=== PATIENT | female | born 1950 | race Caucasian/White ===

== ENCOUNTER 2018-03-25 09:30 | Outpatient (RCR) | payer OTHER, SELFPAY ==
--- NOTE | 2018-03-12 10:18 | PCM.PR.DAT ---
Dates of Coverage Times for Dates Of Coverage; All dates of coverage are for physician supervision/caregivers non medical for during the times of 08:00 AM through 4:30 PM. Effective Jul 27, 2013 our hours will be changing to 8:00 to 4:30 on Sunday, Sunday and Sunday. First Date of the Month: 03/12/18 Last Date of the Month: 03/25/18
--- NOTE | 2018-03-12 10:18 | PCM.PR.HP ---
History of Present Illness Arrival date:: 03/12/18 Arrival time:: 10:19 Date of Referral:: 02/26/18 Date of Evaluation: 03/12/18 Referring Physician: DR. STEPHANIE DAVID Primary Diagnosis: COPD SEVERE GOLD CLASSIFICATION III History of Present Illness: PATIENT IS A 67 YEAR OLD FEMALE PATIENT WHO IS RETURNING TO CONTINUE HER PULMONARY REHAB PROGRAM. SHE INITIALLY HAD STARTED BUT HAD TO POSTPONE PARTICIPATION DUE TO OTHER MEDICAL ISSUES. [facility] Breathless Scale: When is the patient short of breath? Y/N Grade: Description of Breathlessness: 0 I only get breathless with strenuous exercise. 1 I get short of breath when hurrying on level ground or walking up a slight hill. 2 On level ground, I walk slower than people of the same age because of breathless, or have to stop for breath when walking at my own pace. 3 I stop for breath after walking 100 yards or after a few minutes on level ground. 4 I am too breathless to leave the house or I am breathless when dressing. Respiratory Problems: Yes: Fatigue, Able to Speak in Full Sentences, Anxiety, Panic, Dyspnea with Activity No: Retain Secretions, Limited Range of Motion, Chest Pain, Wheezing, Dizziness, Dyspnea at Rest, Dyspnea Lying Down Flat, Cough with Secretions Home Medications: Home Medications Aspirin [Aspirin, Baby] 81 mg PO DAILY@0800 03/25/16 Nebulizer & Supplies #1 ea 11/15/17 budesonide-formoterol HFA 160 mcg-4.5 mcg/actuation aerosol inhaler 2 puff INHALATION BID #10.2 g 12/20/17 bupropion HCl XL 300 mg 24 hr tablet, extended release 300 mg PO QAM 02/04/18 diltiazem CD 120 mg capsule,extended release 24 hr 120 mg PO BID cap 02/04/18 fluticasone 50 mcg/actuation nasal spray,suspension 50 mcg INTRANASAL QDAY 02/04/18 ipratropium bromide 0.02 % solution for inhalation 0.5 mg INHALATION 4X/DAY #120 vial 02/04/18 loratadine 10 mg tablet 10 mg PO QDAY 02/04/18 magnesium oxide 400 mg tablet 400 mg PO QDAY tab 02/04/18 albuterol sulfate HFA 90 mcg/actuation aerosol inhaler 2 puff INHALATION Q4H PRN PRN #18 g 02/25/18 Allergies/Adverse Reactions: Allergies Sulfa (Sulfonamide Antibiotics) Allergy (Verified 02/04/18 09:12) Rash - Secretions Thick:: No Thin:: No Hx of Sleep Apnea: Yes Do you snore loudly (louder than talking or can be heard through closed doors)?: Yes - Has previous MH of PAUL and uses BiPaP at [facility] with oxygen. Do you often feel tired/ fatigued/ sleepy during daytime?: Yes Has anyone observed you stop breathing during sleep?: Yes History of Hypertension (for STOP score): Yes STOP Results: Positive Medical Utilization Do you use a peak flow meter at home?: No Do you use a spacer device with your inhalers?: No Number of hospital visits in the last year?: - February 2017 exacerbation Number of emergency room visits in the last year?: 2 - bronchitis and vertigo Do you see your physician on a regular schedule?: Yes How often?: 6 months and as needed Advanced Directives - Advanced Directives Power of Portable Irrigation Operator: Yes Living Will: Yes Advance Directives Information Provided: No Advance Directives on File: No - Patient is unsure if they are on her medical record DNR Order?:: No - MOLST See MOLST form: No Past Medical History Medical History: Past Medical History (Last Updated 03/12/18 @ 10:24 by Yonas Holloway, SPECIAL PROJECTS MANAGER, BASKETBALL COMMENTATOR, BS) Cough (Chronic) R05 Pneumonia (Chronic) J18.9 Pulmonary hypertension (Chronic) I27.20 Hypersomnia (Chronic) G47.10 Hyperlipidemia (Chronic) E78.5 PAUL (obstructive sleep apnea) (Chronic) G47.33 BiPAP 18/10 cm of water with 2 L oxygen bleed Stage 3 severe COPD by GOLD classification (Chronic) J44.9 FEV1 43% COPD with acute exacerbation (Acute) J44.1 Bronchiectasis (Chronic) J47.9 SOB (shortness of breath) (Chronic) R06.02 Tachycardia (Chronic) R00.0 HTN (hypertension) (Chronic) I10 COPD (chronic obstructive pulmonary disease) (Chronic) J44.9 Vertigo R42 Family History: Family History (Last Reviewed 02/04/18 @ 09:23 by Maci Geller NP-C) Mother Lung cancer Father Liver cancer Sister Colon cancer Sister Breast cancer - Current/ Previous Services Pulmonary Rehab:: Yes - Comments Comments: Patient started [place] back in like 2014/2015 and had to quit participation due to other health issues. Social History - Smoking History Smoking Status: Former smoker Years Smokin Packs Smoked per Day: 1 Hx Smoking Cessation Date: February Hx Tobacco Use: Yes Hx Smoking Exposure: No - Alcohol Use Alcohol Usage: Yes - wine nightly; 2-3 glasses - Substance Abuse Hx Substance Use: No - Occupation Occupation (List type of work in comments):: Retired - Hobbies, Recreation, Social Activities Hobbies: Reading, Other - golfing, spending time wiht grandchildren Recreational Activities: I am able to engage in most, but not all activities Functioning ADL/IADL - Current Ability Current Ability: Independent Self-Care (e.g.,grooming, dressing, & bathing), Independent Ambulation, Independent Transfer, Independent Household tasks (e.g., light meal prep, laundry, shopping) - Pt Functioning Prior to Problem Prior Functioning: Self-Care (e.g.,grooming, dressing, & bathing): Independent, Ambulation: Independent, Transfer: Independent, Household tasks (e.g., light meal prep, laundry, shopping): Independent Social Environment - Status Marital Status: - Current Living Arrangements Living Environment:: Spouse - Children How many children do you have?: 3 Do any of your children live nearby?: Yes - 2 live nearby - Safety Do you feel safe in your surroundings?: Yes - Assistance Do you need any assistance at home?: none Review of Systems Review of Systems: Right click = Denies ([place]). Left click = Reports ([place]) Respiratory: Reports: Appetite, Normal, Dizziness/Lightheadedness - recent onset of vertigo, Fatigue, Sleep, Normal. Denies: Cough, SOB at Rest, Sputum production Is Patient Pain Free?: No Pain Location: none Risk Factor Assessment - Chief Complaint Chief Complaint: Patient has history of COPD, and PAUL. - Vital Signs Temperature: 98.7 F Pulse Rate: 88 Pulse Rhythm: Regular Respiratory Rate: 18 Pulse Ox: 92 Blood Pressure: 152/84 Nailbeds:: unable to determine nails - Smoking Do you use tobacco products? If so, how much and for how long?: Yes If no, have you EVER used tobacco products?: Quit greater than 12 months ago Exposure to 2nd-hand smoke? How much and how long?: No Do you plan to quit smoking?: Yes - Obesity Height: 5 ft 4 in Weight:: 175 lb Weight in Pounds: 175.0 lbs Weight Source: Stated by Patient Body Mass Index (BMI): 30.0 Nutritional Referral for Obesity: Yes - Patient could benefit from structured weight loss program. - Physical Activity Physical Inactivity: None - Risk Stratification Risk Guidelines: Lowest Risk: Risk Factor for Smoking, Risk Factor for Dyslipidemia, Risk Factor for Diabetes, Risk Factor for Hypertension, Risk Factor for Depression, Moderate Risk: Risk Factor for Sedentary Lifestyle, Highest Risk: Risk Factor for Obesity - For Smoking Smoking Risk Guidelines: Smoking Low Risk: None or quit greater than 6 months ago. Smoking Moderate Risk: Smoker or quit 6 months or less ago. Smoking High Risk: Smoker - For Dyslipidemia Dyslipidemia Risk Guidelines: Low Risk: Moderate Risk: High Risk: 15-25% fat 25.1-29% fat >/= 30% fat. <7% sat fat 7-9% sat fat >9% sat fat. <150 mg chol 150-299 mg chol >/= 300 mg chol. LDL <100 LDL 100-129 LDL >/= 130. Chol/HDL ratio <5.0 Chol/HDL ratio 5.0-6.0 Chol/HDL ratio >6.0. Triglycerides <100 Triglycerides 100-149 Triglycerides >/= 150 - For Diabetes Mellitus Diabetes Risk Guidelines: Diabetes Low Risk: HgA1c <6.5% and/or FBG <120. Diabetes Moderate Risk: HgA1c 6.6-7.9% and/or FBG 120-180. Diabetes High Risk: HgA1c >/= 8% and/or FBG >180 - For Obesity/Overweight Obesity/Overweight Risk Guidelines: Obesity Low Risk: BMI <25.0. Obesity Moderate Risk: BMI 25-29.9. Obesity High Risk: BMI >/= 30.0 - For Hypertension Hypertension Risk Guidelines: Hypertension Low Risk: Systolic <120 and Diastolic <80. Hypertension Moderate Risk: Systolic 120-139 and Diastolic 80-89. Hypertension High Risk: Systolic >/= 140 and Diastolic >/= 90 - For Sedentary Lifestyle Sedentary Lifestyle Risk Guidelines: Sedentary Lifestyle Low Risk: >/= 1,500 kcal/week. Sedentary Lifestyle Moderate Risk: 700-1,499 kcal/week. Sedentary Lifestyle High Risk: < 700 kcal/week - For Depression Depression Risk Guidelines: Depression Low Risk: Not clinically depressed. Depression Moderate Risk: Mildly depressed. Depression High Risk: Clinically depressed Motivation - Motivation to Participate On a scale of 1 to 10, how prepared are you to commit to attending program?: 10 What do you see as barriers to successfully being able to complete the program?: illness What do you see as the benefits of succesfully completing the program? In other words, what do you hope to get out of participating in the program?: hoping to breathe better Are there issues you are dealing with that will interfere with completing the program?: daughter health issues. Do you have a spouse or signficant other, family or friends who will help support you to complete the program?: yes. Diagnostic Data Review - Pulmonary Function Test FEV1:: 1.01 - 43% predicted FVC:: 2.46 - 79% predicted FEV1/FVC%:: 41 Gold Classification: GOLD class III(severe COPD)with FEV1/FVC<70, 30%</=FEV1< 50% predicted
--- NOTE | 2018-03-12 10:29 | PR.HP_ITS ---
History of Present Illness Arrival date:: 03/12/18 Arrival time:: 10:19 Date of Referral:: 02/26/18 Date of Evaluation: 03/12/18 Referring Physician: DR. STEPHANIE DAVID Primary Diagnosis: COPD SEVERE GOLD CLASSIFICATION III History of Present Illness: PATIENT IS A 67 YEAR OLD FEMALE PATIENT WHO IS RETURNING TO CONTINUE HER PULMONARY REHAB PROGRAM. SHE INITIALLY HAD STARTED BUT HAD TO POSTPONE PARTICIPATION DUE TO OTHER MEDICAL ISSUES. [facility] Breathless Scale: When is the patient short of breath? Y/N Grade: Description of Breathlessness: 0 I only get breathless with strenuous exercise. 1 I get short of breath when hurrying on level ground or walking up a slight hill. 2 On level ground, I walk slower than people of the same age because of breathless, or have to stop for breath when walking at my own pace. 3 I stop for breath after walking 100 yards or after a few minutes on level ground. 4 I am too breathless to leave the house or I am breathless when dressing. Respiratory Problems: Yes: Fatigue, Able to Speak in Full Sentences, Anxiety, Panic, Dyspnea with Activity No: Retain Secretions, Limited Range of Motion, Chest Pain, Wheezing, Dizziness, Dyspnea at Rest, Dyspnea Lying Down Flat, Cough with Secretions Home Medications: Home Medications Aspirin [Aspirin, Baby] 81 mg PO DAILY@0800 03/25/16 Nebulizer & Supplies #1 ea 11/15/17 budesonide-formoterol HFA 160 mcg-4.5 mcg/actuation aerosol inhaler 2 puff INHALATION BID #10.2 g 12/20/17 bupropion HCl XL 300 mg 24 hr tablet, extended release 300 mg PO QAM 02/04/18 diltiazem CD 120 mg capsule,extended release 24 hr 120 mg PO BID cap 02/04/18 fluticasone 50 mcg/actuation nasal spray,suspension 50 mcg INTRANASAL QDAY 02/04 ipratropium bromide 0.02 % solution for inhalation 0.5 mg INHALATION 4X/DAY # 120 vial 02/04/18 loratadine 10 mg tablet 10 mg PO QDAY 02/04/18 magnesium oxide 400 mg tablet 400 mg PO QDAY tab 02/04/18 albuterol sulfate HFA 90 mcg/actuation aerosol inhaler 2 puff INHALATION Q4H PRN PRN #18 g 02/25/18 Allergies/Adverse Reactions: Allergies Sulfa (Sulfonamide Antibiotics) Allergy (Verified 02/04/18 09:12) Rash - Secretions Thick:: No Thin:: No Hx of Sleep Apnea: Yes Do you snore loudly (louder than talking or can be heard through closed doors)? : Yes - Has previous MH of APUL and uses BiPaP at [facility] with oxygen. Do you often feel tired/ fatigued/ sleepy during daytime?: Yes Has anyone observed you stop breathing during sleep?: Yes History of Hypertension (for STOP score): Yes STOP Results: Positive Medical Utilization Do you use a peak flow meter at home?: No Do you use a spacer device with your inhalers?: No Number of hospital visits in the last year?: - February 2017 exacerbation Number of emergency room visits in the last year?: 2 - bronchitis and vertigo Do you see your physician on a regular schedule?: Yes How often?: 6 months and as needed Advanced Directives - Advanced Directives Power of Professor Computer Science: Yes Living Will: Yes Advance Directives Information Provided: No Advance Directives on File: No - Patient is unsure if they are on her medical record DNR Order?:: No - MOLST See MOLST form: No Past Medical History Medical History: Past Medical History (Last Updated 03/12/18 @ 10:24 by Yonas Holloway, REFRACTORY TECHNICIAN, HOOD MAKER, BS) Cough (Chronic) R05 Pneumonia (Chronic) J18.9 Pulmonary hypertension (Chronic) I27.20 Hypersomnia (Chronic) G47.10 Hyperlipidemia (Chronic) E78.5 PAUL (obstructive sleep apnea) (Chronic) G47.33 BiPAP 18/10 cm of water with 2 L oxygen bleed Stage 3 severe COPD by GOLD classification (Chronic) J44.9 FEV1 43% COPD with acute exacerbation (Acute) J44.1 Bronchiectasis (Chronic) J47.9 SOB (shortness of breath) (Chronic) R06.02 Tachycardia (Chronic) R00.0 HTN (hypertension) (Chronic) I10 COPD (chronic obstructive pulmonary disease) (Chronic) J44.9 Vertigo R42 Family History: Family History (Last Reviewed 02/04/18 @ 09:23 by Maci Geller NP-C) Mother Lung cancer Father Liver cancer Sister Colon cancer Sister Breast cancer - Current/ Previous Services Pulmonary Rehab:: Yes - Comments Comments: Patient started [place] back in like 2014/2015 and had to quit participation due to other health issues. Social History - Smoking History Smoking Status: Former smoker Years Smokin Packs Smoked per Day: 1 Hx Smoking Cessation Date: February Hx Tobacco Use: Yes Hx Smoking Exposure: No - Alcohol Use Alcohol Usage: Yes - wine nightly; 2-3 glasses - Substance Abuse Hx Substance Use: No - Occupation Occupation (List type of work in comments):: Retired - Hobbies, Recreation, Social Activities Hobbies: Reading, Other - golfing, spending time wiht grandchildren Recreational Activities: I am able to engage in most, but not all activities Functioning ADL/IADL - Current Ability Current Ability: Independent Self-Care (e.g.,grooming, dressing, & bathing), Independent Ambulation, Independent Transfer, Independent Household tasks (e.g. , light meal prep, laundry, shopping) - Pt Functioning Prior to Problem Prior Functioning: Self-Care (e.g.,grooming, dressing, & bathing): Independent, Ambulation: Independent, Transfer: Independent, Household tasks (e.g., light meal prep, laundry, shopping): Independent Social Environment - Status Marital Status: - Current Living Arrangements Living Environment:: Spouse - Children How many children do you have?: 3 Do any of your children live nearby?: Yes - 2 live nearby - Safety Do you feel safe in your surroundings?: Yes - Assistance Do you need any assistance at home?: none Review of Systems Review of Systems: Right click = Denies ([place]ash). Left click = Reports ([place]) Respiratory: Reports: Appetite, Normal, Dizziness/Lightheadedness - recent onset of vertigo, Fatigue, Sleep, Normal. Denies: Cough, SOB at Rest, Sputum production Is Patient Pain Free?: No Pain Location: none Risk Factor Assessment - Chief Complaint Chief Complaint: Patient has history of COPD, and PAUL. - Vital Signs Temperature: 98.7 F Pulse Rate: 88 Pulse Rhythm: Regular Respiratory Rate: 18 Pulse Ox: 92 Blood Pressure: 152/84 Nailbeds:: unable to determine nails - Smoking Do you use tobacco products? If so, how much and for how long?: Yes If no, have you EVER used tobacco products?: Quit greater than 12 months ago Exposure to 2nd-hand smoke? How much and how long?: No Do you plan to quit smoking?: Yes - Obesity Height: 5 ft 4 in Weight:: 175 lb Weight in Pounds: 175.0 lbs Weight Source: Stated by Patient Body Mass Index (BMI): 30.0 Nutritional Referral for Obesity: Yes - Patient could benefit from structured weight loss program. - Physical Activity Physical Inactivity: None - Risk Stratification Risk Guidelines: Lowest Risk: Risk Factor for Smoking, Risk Factor for Dyslipidemia, Risk Factor for Diabetes, Risk Factor for Hypertension, Risk Factor for Depression, Moderate Risk: Risk Factor for Sedentary Lifestyle, Highest Risk: Risk Factor for Obesity - For Smoking Smoking Risk Guidelines: Smoking Low Risk: None or quit greater than 6 months ago. Smoking Moderate Risk: Smoker or quit 6 months or less ago. Smoking High Risk: Smoker - For Dyslipidemia Dyslipidemia Risk Guidelines: Low Risk: Moderate Risk: High Risk: 15-25% fat 25.1-29% fat >/= 30% fat. <7% sat fat 7-9% sat fat >9% sat fat. <150 mg chol 150-299 mg chol >/= 300 mg chol. LDL <100 LDL 100-129 LDL >/= 130. Chol/HDL ratio <5.0 Chol/HDL ratio 5.0-6.0 Chol/HDL ratio >6.0. Triglycerides <100 Triglycerides 100-149 Triglycerides >/= 150 - For Diabetes Mellitus Diabetes Risk Guidelines: Diabetes Low Risk: HgA1c <6.5% and/or FBG <120. Diabetes Moderate Risk: HgA1c 6.6-7.9% and/or FBG 120-180. Diabetes High Risk: HgA1c >/= 8% and/or FBG >180 - For Obesity/Overweight Obesity/Overweight Risk Guidelines: Obesity Low Risk: BMI <25.0. Obesity Moderate Risk: BMI 25-29.9. Obesity High Risk: BMI >/= 30.0 - For Hypertension Hypertension Risk Guidelines: Hypertension Low Risk: Systolic <120 and Diastolic <80. Hypertension Moderate Risk: Systolic 120-139 and Diastolic 80-89. Hypertension High Risk: Systolic >/= 140 and Diastolic >/= 90 - For Sedentary Lifestyle Sedentary Lifestyle Risk Guidelines: Sedentary Lifestyle Low Risk: >/= 1 ,500 kcal/week. Sedentary Lifestyle Moderate Risk: 700-1,499 kcal/week. Sedentary Lifestyle High Risk: < 700 kcal/week - For Depression Depression Risk Guidelines: Depression Low Risk: Not clinically depressed. Depression Moderate Risk: Mildly depressed. Depression High Risk: Clinically depressed Motivation - Motivation to Participate On a scale of 1 to 10, how prepared are you to commit to attending program?: 10 What do you see as barriers to successfully being able to complete the program? : illness What do you see as the benefits of succesfully completing the program? In other words, what do you hope to get out of participating in the program?: hoping to breathe better Are there issues you are dealing with that will interfere with completing the program?: daughter health issues. Do you have a spouse or signficant other, family or friends who will help support you to complete the program?: yes. Diagnostic Data Review - Pulmonary Function Test FEV1:: 1.01 - 43% predicted FVC:: 2.46 - 79% predicted FEV1/FVC%:: 41 Gold Classification: GOLD class III(severe COPD)with FEV1/FVC<70, 30%</=FEV1< 50 % predicted
[2018-03-12 10:33] VITALS: BP 152/84; PULSE 88; RESP 18; TEMP 37.1; O2SAT 92
--- NOTE | 2018-03-12 10:53 | PR.ITP_ITS ---
General Information - General Information Admitting Diagnosis: COPD Severe GOLD Classification III Gold Classification:: GOLD 3: Severe - PFT FEV1:: 1.01 - 43% predicted FVC:: 2.46 - 79% predicted FEV1/FVC%:: 41 - Education/Goals Barriers to Learning: None, Vision Impairment - wears corrective lenses for vision. Individual Counseling: Initial Assessment: Dyspnea control techniques at rest, activity, and ADLs, Exacerbation prevention & management, Panic & depression management, Home exercise plan & guidelines Patient Goals: Breathe better: Initial Assessment, Increase endurance/stamina: Initial Assessment, Return to recreation/hobby: Initial Assessment, Return to work: Initial Assessment - Return to [employer], Improve diet and nutrition: Initial Assessment, Symptom management: Initial Assessment, Improve weight: Initial Assessment Exercise - Initial Assessment - Visit Date of Eval: 03/12/18 - established initial ITP - Problem/Goals Problems: No regular exercise - Exercise Prescription Mode:: Treadmill, Rower, Airdyne, NuStep Frequency (x/week): 3 Duration:: 30 MET LEVEL:: 3 - 3.0-3.5 HR (bpm):: 125 - 110-125 THRR Exercise Progression: as tolerated by patient per protocol - Plan Plan and Plan to Review:: Benefits of exercise, Core components of exercise, How to measure dyspnea level, How to monitor dyspnea level, Exercise intensity, Exercise safety guideline, Home exercise guidelines, Rae: 3-4/-13 Disease Management - Initial - Problems/Goals-Hypoxemia Hypoxemia Goals:: Hypoxemia managed - Problems/Goals-Bronchial Hygiene Bronchial Hygiene Problems:: Respiratory infection Prevention/Management Bronchial Hygiene Goals:: Pt describes signs and symptoms of infection. - Initial Assessment SpO2:: 92 Does pt report taking home meds as prescribed?: Yes Medications: Yes MDI, Yes NEB, No Spacer Patient Reports:: No cough - Plans Hypoxemia Plan:: Monitor SpO2 rest & with exercise, Train O2 safety & systems Reviewed prescribed medications:: Purpose, Schedule, Side effects, Importance of compliance Instruct correct technique/timing & care:: MDI, DPI, Nebulizer, Return demo use of inhaler Bronchial Hygiene Plan: Controlled cough, Vibratory PEP device, Hydration, Hand hygiene, Signs/symptoms to report: Psychosocial - Initial Assess - Problems/Goals Problems: Impaired Q.O.L. Psychosocial Goals: Improved Q.O.L. - Psychosocial Test Depression:: Impaired QOL Tests Completed: SF - 36 survey completed, Mood Scale Test Referred to MD for counseling:: No - Plan Reviewed screening results: Yes Instructions given regarding:: Benefits of exercise, Relaxation techniques, Training in coping strategies Tobacco - Initial Assessment - Program Goals Tobacco Program Goals: Complete smoking cessation. Attend education classes. Improve Knowledge Test score - Stage of Change Stages of Change:: Action - Learning Barriers Learning Barriers: Vision - wears corrective lenses for vision , Ready to Learn - Family Support Do you have family support?: Yes - Tobacco Use Tobacco Use: Cigarettes How long ago did you quit using tobacco products?: Greater than or equal to 6 months ago How many cigarettes do you smoke per day?: 0 - last cigarette 02/2017 Years Smokin Do you use smokeless tobacco?: No - Intervention Smoking Cessation Referral:: No - Education Gave Education Materials For:: Tobacco Triggers, Pulmonary Disease, Risk Factors , Breathing Techniques, Medical Compliance, Pulmonary A&P, Exacerbation Signs & Symptoms, Stress & Relaxation Nutrition/Wt Mgmt - Initial - Problems/Goals Problems: Overweight - Weight Management Knowledge Deficit Management of:: Overweight Admit Height:: 5 ft 4 in Admit Weight:: 175 lb Admit BMI:: 30.0 - Diabetes Diabetes:: No Insulin: No Do you monitor your blood sugar at home?: No - Intervention Referral to dietitian:: No Referral to Diabetic Clinic:: No Will attend diet classes:: Yes - Plan Nutrition Plan: Yes Review BMI or WC & identify target wt & strategies for wt control, Yes Nutrition education class:, Yes Weight control education class: Patient Health Questionnaire Initial Assessment 1. Little interest or pleasure in doing things: Several days 2. Feeling down, depressed, or hopeless: Several days 3. Trouble falling or staying asleep, or sleeping too much: Several days 4. Feeling tired or having little energy: Several days 5. Poor appetite or overeating: Nearly every day 6. Feeling bad about yourself -- or that you are a failure or have let yourself or your family down: More than half the days 7. Trouble concentrating on things, such as reading the newspaper or watching television: Not at all 8. Moving or speaking so slowly that other people could have noticed. Or the opposite - being so fidgety or restless that you have been moving around a lot more than usual: Not at all 9. Thoughts that you would be better off , or of hurting yourself in some way: Not at all How difficult have these problems made it for you to do your work, take care of things at home, or get along with other people?: Somewhat difficult Total Score: 9 COPD Knowledge Test Initial COPD is a lung disease that:: Makes it hard to breathe & gets worse over time In the [place] the term COPD describes 2 main lung conditions:: Emphysema & chronic bronchitis The most common lung irritant that causes COPD is:: Cigarette smoke Common signs and symptoms of COPD include:: An ongoing cough/cough that produces a large amount of mucus, & SOB If you have COPD, what steps can you take?: All of the above Swelling of the ankles is common in COPD:: False Fatigue [tiredness] is common in COPD:: True Wheezing is common in COPD:: True Crushing chest pain is common in COPD:: False Rapid weight loss is common in COPD:: False Breathlessness is a normal response to exercise: False Exercise should be avoided if it makes you short of breath: False All bronchodilators act within 10 minutes: True A spacer device increases the medication to the lungs: True Annual flu vaccine is recommended for pts w/lung disease: True COPD Knowledge Test Total Score:: 13 COPD Assessment Test [CAT] - Questions Never cough = 0, Cough all the time = 5: 1 No phlegm = 0, Chest full of phlegm = 5: 1 No chest tightness = 0, Chest very tight = 5: 1 No breathless w/exertion = 0, Very breathless w/exertion = 5: 5 No limitations w/activity = 0, Very limited w/activity = 5: 2 Confident leaving home = 0, Not at all confident = 5: 1 Sleep soundly = 0, Don't sleep soundly = 5: 1 Lots of energy = 0, No energy at all = 5: 3 Total CAT score:: 15 Self-Efficacy Initial Assessment We would like to know how confident you are in doing certain activities. Please select your confidence level for:: Select your confidence level for the following using the scale 1-10 where 1 is not at all confident and 10 is totally confident. Your score is the average of all 6 responses. Fatigue: How confident are you that you can keep the fatigue caused by your disease from interfering with the things you want to do? Select Number: 5 Physical Discomfort or Pain: How confident are you that you can keep the physical discomfort or pain of your disease from interfering with the things you want to do? Select Number: 4 Emotional Distress: How confident are you that you can keep the emotional distress caused by your disease from interfering with the things you want to do? Select Number: 4 Other Symptoms or Health Problems: How confident are you that you can keep other symptoms or health problems from interfering with the things you want to do? Select Number: 5 Different Tasks and Activities: How confident are you that you can do the different tasks and activities needed to manage your health condition so as to reduce your need to see a doctor? Select Number: 5 Medication: How confident are you that you can do things other than just taking medication to reduce how much your illness affects your everyday life? Select Number: 7 Total Score:: 5 Nutrition Survey - Nutrition Survey Instructions Scoring Instructions: Scoring is as follows: Yes = 1 points. No = 0 point. Patient score that is >/=12 is considered to be at potential nutritional risk and could benefit from a referral to a registered dietitian. - Nutrition Survey Initial Have you lost >10 lbs over the past 2 months without trying?: No Are you following a special diet at home for diabetes, low fat, or low salt?: No Are you interested in meeting with a dietitian for help understanding your diet? : No Do you eat less than 3 meals a day?: No Do you eat fatty meats (palmer, sausage, ribs, etc), fried foods, desserts, large amounts of salad dressings, margarine, butter, or cheese most days?: Yes Do you have food allergies? [Enter types in comment field]: No Do you eat in restaurants more than 3 times a week?: No Do you season food with salt, seasoning salt, or garlic salt?: No Do you used canned, boxed, frozen meals, or soups, seasoning packets?: No Total Score:: 1
[2018-03-12 11:32] VITALS: O2SAT 92
== END 2018-03-25 23:59 ==
LOC: PR 09:30
PROVIDERS: Family Provider Internal Medicine; PCP Internal Medicine; Visit Provider Internal Medicine Critical Care Medicine
DX: J44.9 Chronic obstructive pulmonary disease, unspecified (principal)
CPT/HCPCS: 97150; G0424

== ENCOUNTER 2018-04-19 09:30 | Outpatient (RCR) | payer OTHER, SELFPAY ==
[2018-03-26 01:07] VITALS: PULSE 88; RESP 18; TEMP 37.1; O2SAT 92
--- NOTE | 2018-04-18 09:52 | PR.DATECOV_ITS ---
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 Effective Jul 27, 2013 our hours will be changing to 8:00 to 4:30 on Sunday, Sunday and Sunday. First Date of the Month: 04/26/18 Last Date of the Month: 05/25/18
--- NOTE | 2018-04-18 10:01 | PR.ITP_ITS ---
General Information - General Information Admitting Diagnosis: COPD Gold Classification:: GOLD 3: Severe - Education/Goals Barriers to Learning: None Individual Counselin-Day Assessment: Inhaled and respiratory medications, Exacerbation prevention & management, O2, Rx, system, safety, Home exercise plan & guidelines Patient Goals: Breathe better: 30-Day Assessment - IMPROVING, Increase endurance /stamina: 30-Day Assessment - Improving, Return to recreation/hobby: 30-Day Assessment - Improving, Return to work: 30-Day Assessment, Improve diet and nutrition: 30-Day Assessment - changing diet, Symptom management: 30-Day Assessment, Improve weight: 30-Day Assessment - slowly losing Exercise - 30-Day Assessment - Exercise Prescription Mode:: Treadmill, NuStep, Arm Ergometer Frequency (x/week): 3 Duration:: 30 Aerobic Exercise [30-60 min 3-7x/week]:: Progressing Target heart rate: 110-125 Rae MET Level:: 3.2 - Home Exercise Home Exercise:: No Disease Management - 30-Day - Hypoxemia Reassessment: Demonstrates knowledge of O2 Rx with exercise - Medications Medication list reviewed:: Yes Taking medications 100% of the time:: Met Medication reassessment: Yes Pt demonstrates correct technique timing for MDI, Yes Pt demonstrates correct technique timing for DPI, Yes Pt demonstrates correct technique timing for NEB, Yes Pt demonstrates correct technique timing for spacer - instructed use of spacer device - Bronchial Hygiene Bronchial Hygiene Plan: Yes Pt demonstrates correctly for effective cough, Yes Pt demo correct for improved hydration, Yes Pt demo correct for hand hygiene Psychosocial - 30-Day - Assessment Reassessment: Practicing interventions, COPD assessment w/ CAT, Geriatric depression screening, Self efficacy score Tobacco - 30-Day Assessment - Program Goals Tobacco Program Goals: Complete smoking cessation. Attend education classes. Improve Knowledge Test score - Stage of Change Stages of Change:: Action - Learning Barriers Learning Barriers: Participates in education - Family Support Do you have family support?: Yes - Tobacco Use Tobacco Use: Non-smoker - Intervention Education Schedule Given:: Yes - Education Gave Education Materials For:: Pulmonary Disease, Risk Factors, Breathing Techniques, Medical Compliance, Pulmonary A&P, Exacerbation Signs & Symptoms, Stress & Relaxation Nutrition/Wt Mgmt - 30-Day - Weight Management Weight Assessment:: Wt stable Weight:: 181 lb 8 oz Weight Goals Progress:: Not progressing Patient Health Questionnaire 30-Day Re-eval Assessment 1. Little interest or pleasure in doing things: Several days 2. Feeling down, depressed, or hopeless: Several days 3. Trouble falling or staying asleep, or sleeping too much: Not at all 4. Feeling tired or having little energy: Not at all 5. Poor appetite or overeating: More than half the days 6. Feeling bad about yourself -- or that you are a failure or have let yourself or your family down: Several days 7. Trouble concentrating on things, such as reading the newspaper or watching television: Not at all 8. Moving or speaking so slowly that other people could have noticed. Or the opposite - being so fidgety or restless that you have been moving around a lot more than usual: Not at all 9. Thoughts that you would be better off , or of hurting yourself in some way: Not at all How difficult have these problems made it for you to do your work, take care of things at home, or get along with other people?: Not difficult at all Total Score: 5 Self-Efficacy 30-Day Re-eval Assessment We would like to know how confident you are in doing certain activities. Please select your confidence level for:: Select your confidence level for the following using the scale 1-10 where 1 is not at all confident and 10 is totally confident. Your score is the average of all 6 responses. Fatigue: How confident are you that you can keep the fatigue caused by your disease from interfering with the things you want to do? Select Number: 6 Physical Discomfort or Pain: How confident are you that you can keep the physical discomfort or pain of your disease from interfering with the things you want to do? Select Number: 5 Emotional Distress: How confident are you that you can keep the emotional distress caused by your disease from interfering with the things you want to do? Select Number: 5 Other Symptoms or Health Problems: How confident are you that you can keep other symptoms or health problems from interfering with the things you want to do? Select Number: 6 Different Tasks and Activities: How confident are you that you can do the different tasks and activities needed to manage your health condition so as to reduce your need to see a doctor? Select Number: 6 Medication: How confident are you that you can do things other than just taking medication to reduce how much your illness affects your everyday life? Select Number: 8 Total Score:: 6
== END 2018-04-25 23:59 ==
LOC: PR 09:30
PROVIDERS: Family Provider Internal Medicine; PCP Internal Medicine; Visit Provider Internal Medicine Critical Care Medicine
DX: J44.9 Chronic obstructive pulmonary disease, unspecified (principal)
CPT/HCPCS: 97150; G0424

== ENCOUNTER → 2018-04-29 08:59 | Outpatient (CLI) | payer OTHER, SELFPAY ==
--- NOTE | 2018-04-29 08:59 | DT_ITS ---
This patient was seen during an EMR downtime April 29, 2018 - May 06, 2018. This patient may have a combination of paper and electronic documentation or all paper documentation. All documentation is viewable within the e-chart portion of [facility] for each patient visit.
[2018-04-29 10:24] VITALS: PULSE 101; PULSE 105; PULSE 107; PULSE 109; PULSE 110; PULSE 97; PULSE 98; O2SAT 87; O2SAT 90; O2SAT 91; O2SAT 92; O2SAT 94
--- NOTE | 2018-05-06 10:27 | CPS ---
Testing performed by Yoselin Diallo RRT. Patient started testing on room air, by the 3rd minute SpO2 87%. Placed patient on 2 lpm O2 for the rest of the test, patient has O2 at home.
--- NOTE | 2018-05-06 10:57 | PCM.PSN.6M ---
PSN 6 Minute Walk Test - 6 Minute Walk Test 6 Minute Walk Test: 6 Minute Walk Test PSN:6-Minute Walk Test Start: 05/06/18 10:23 Freq: Status: Active Protocol: [id number] Document 04/29/18 10:24 LENARD (Rec: 05/06/18 10:30 LENARD [id number]) 6 Minute Walk Test Date Performed 04/29/18 Time Performed 09:00 Height 5 ft 3 in Weight: 180 lb Weight in Pounds 180.[address]: Maci Geller Assistive device used: None Pre-test Oxygen Delivery Method Room Air Pulse Ox (%) 92 Pulse Rate (60-100 beats/min) 97 Dyspnea Rae Scale (0-10) 0.5 Exertion Rae Scale (6-20) 6 1st minute Oxygen Delivery Method Room Air Pulse Ox (%) 90 Pulse Rate (60-100 beats/min) 107 H 2nd minute Oxygen Delivery Method Room Air Pulse Ox (%) 87 Pulse Rate (60-100 beats/min) 110 H Dyspnea Rae Scale (0-10) 4 Exertion Rae Scale (6-20) 11 3rd minute Oxygen Flow Rate (L/min) (L/min) 2 Oxygen Delivery Method Nasal Cannula Pulse Ox (%) 92 Pulse Rate (60-100 beats/min) 101 H 4th minute Oxygen Flow Rate (L/min) (L/min) 2 Oxygen Delivery Method Nasal Cannula Pulse Ox (%) 92 Pulse Rate (60-100 beats/min) 105 H 5th minute Oxygen Flow Rate (L/min) (L/min) 2 Oxygen Delivery Method Nasal Cannula Pulse Ox (%) 91 Pulse Rate (60-100 beats/min) 107 H 6th minute Oxygen Flow Rate (L/min) (L/min) 2 Oxygen Delivery Method Nasal Cannula Pulse Ox (%) 92 Pulse Rate (60-100 beats/min) 109 H Dyspnea Rae Scale (0-10) 3 Exertion Rae Scale (6-20) 11 Post-test Oxygen Flow Rate (L/min) (L/min) 2 Oxygen Delivery Method Nasal Cannula Pulse Ox (%) 94 Pulse Rate (60-100 beats/min) 98 Full Laps Walked 20 Partial Lap, Number of Tiles Walked 7 Total Distance Walked (ft) 1187 05/06/18 10:27 [facility] [place] Testing performed by Yoselin Diallo RRT. Patient started testing on room air, by the 3rd minute SpO2 87%. Placed patient on 2 lpm O2 for the rest of the test, patient has O2 at home. Initialized on 05/06/18 10:27 - END OF NOTE - Interpretation Interpretation: The patient ambulated 1187 feet over the course of 6 minutes beginning on room air without assistive devices or breaks. Pretesting oxygen saturation was noted to be 92% on room air. With ambulation, the negrito oxygen saturation was 87% at minute #2 of testing. 2 L/min of supplemental oxygen was applied and the patient was able to complete the remainder of the test, while maintaining oxygen saturations at above 88%. This testing indicates a significant exertional oxygen desaturation. - Recommendations Recommendations: 2 L/min of supplemental oxygen should be utilized with exertion.
== END ==
PROVIDERS: Family Provider Internal Medicine; PCP Internal Medicine; Visit Provider Nurse Practitioner Acute Care
DX: J44.9 Chronic obstructive pulmonary disease, unspecified (principal)
CPT/HCPCS: 94618

== ENCOUNTER → 2018-05-10 13:26 | Outpatient (CLI) | payer OTHER, SELFPAY | PROVIDERS: Family Provider Internal Medicine; PCP Internal Medicine; Visit Provider Internal Medicine | DX: Z76.89 Persons encountering health services in other specified circumstances (principal) ==

== ENCOUNTER → 2018-05-16 09:17 | Outpatient (CLI) | payer OTHER, SELFPAY ==
--- NOTE | 2018-05-16 13:35 | PFT ---
INTRODUCTION: The patient is a 67-year-old female currently under the care of Dr. Aranda that presents for pulmonary function testing secondary to a diagnosis of COPD. Respiratory therapy reports good patient effort. Bronchodilators were used during testing. INTERPRETATION: Forced expiration spirometry demonstrates the presence of a severe large airways obstructive ventilatory defect. There was a significant response to aerosolized bronchodilators noted based upon change in FVC. Spirograms are of good quality and do not plateau indicating slow emptying of the lungs. The respiratory flow volume loop reveals decreased expiratory flow rates at all lung volumes consistent with airways obstruction. Body plethysmography was performed and reveals an elevated TLC and RV, indicative of underlying hyperinflation and air-trapping. Diffusing capacity by single breath CO is moderately reduced at 50% of predicted. When compared to previous pulmonary function studies dated July 2017, there has been a 10% reduction in the patient's FEV1 and a 13% improvement in DLCO. IMPRESSION: These pulmonary function studies demonstrate the presence of a partially reversible severe large airways obstructive ventilatory defect with associated hyperinflation, air trapping and reduction in diffusing capacity.
== END ==
PROVIDERS: Family Provider Internal Medicine; PCP Internal Medicine; Visit Provider Nurse Practitioner Acute Care
DX: J44.9 Chronic obstructive pulmonary disease, unspecified (principal)
CPT/HCPCS: 94060; 94726; 94729

== ENCOUNTER 2018-05-17 09:30 | Outpatient (RCR) | payer OTHER, SELFPAY ==
[2018-04-26 00:55] VITALS: PULSE 88; RESP 18; TEMP 37.1; O2SAT 92
--- NOTE | 2018-05-17 09:38 | PCM.PR.DAT ---
Dates of Coverage Times for Dates Of Coverage; All dates of coverage are for physician supervision/general medical practitioner for during the times of 08:00 AM through 4:30 PM. Effective Jul 27, 2013 our hours will be changing to 8:00 to 4:30 on Sunday, Sunday and Sunday. First Date of the Month: 05/26/18 Last Date of the Month: 06/25/18
--- NOTE | 2018-05-17 09:43 | PR.DATECOV_ITS ---
Dates of Coverage Times for Dates Of Coverage; All dates of coverage are for physician supervision /medical transcription supervisor for during the times of 08:00 AM through 4:30 PM. Effective Jul 27, 2013 our hours will be changing to 8:00 to 4:30 on Sunday, Sunday and Sunday. First Date of the Month: 05/26/18 Last Date of the Month: 06/25/18
--- NOTE | 2018-05-17 09:44 | PCM.PR.TP ---
Exercise - 90-Day Assessment - Exercise Prescription Mode:: Treadmill, NuStep, Arm Ergometer Frequency (x/week): 3 Duration:: 30 Aerobic Exercise [30-60 min 3-7x/week]:: Progressing Target heart rate: 114-121 Rae-12 MET Level:: 3.2 - Home Exercise Home Exercise?: Yes Frequency:: 3 Time (minutes):: 30 - walking/other home activities Disease Management - 90-Day - Medications Medication list reviewed:: Yes Taking medications 100% of the time:: Met Medication reassessment: Yes Pt demonstrates correct technique timing for MDI, Yes Pt demonstrates correct technique timing for DPI, Yes Pt demonstrates correct technique timing for NEB, Yes Pt demonstrates correct technique timing for spacer - Bronchial Hygiene Bronchial Hygiene Plan: Yes Pt demonstrates correctly for effective cough, Yes Pt demo correct for device - uses acapella device, Yes Pt demo correct for improved hydration, Yes Pt demo correct for hand hygiene, Yes Pt demo correct for verbalize when to call MD Psychosocial - 90-Day - Assessment Depression reassess: Management of stress: Met, Management of depression: Met, Practicing interventions: Met Tobacco - -Day Assessment - Program Goals Tobacco Program Goals: Complete smoking cessation. Attend education classes. Improve Knowledge Test score - Stage of Change Stages of Change:: Action - Learning Barriers Learning Barriers: Participates in education - Family Support Do you have family support?: Yes - Tobacco Use Tobacco Use: Non-smoker - Intervention Education Schedule Given:: Yes - Education Gave Education Materials For:: Pulmonary Disease, Risk Factors, Breathing Techniques, Medical Compliance, Pulmonary A&P, Exacerbation Signs & Symptoms, Stress & Relaxation Nutrition/Wt Mgmt - 90-Day - Weight Management Weight Assessment:: Wt loss 1-2 lbs per week Weight:: 181 lb Weight Goals Progress:: Not progressing Patient Health Questionnaire 90-Day Re-eval Assessment 1. Little interest or pleasure in doing things: Not at all 2. Feeling down, depressed, or hopeless: Not at all 3. Trouble falling or staying asleep, or sleeping too much: Not at all 4. Feeling tired or having little energy: Not at all 5. Poor appetite or overeating: Not at all 6. Feeling bad about yourself -- or that you are a failure or have let yourself or your family down: Not at all 7. Trouble concentrating on things, such as reading the newspaper or watching television: Not at all 8. Moving or speaking so slowly that other people could have noticed. Or the opposite - being so fidgety or restless that you have been moving around a lot more than usual: Not at all 9. Thoughts that you would be better off , or of hurting yourself in some way: Not at all How difficult have these problems made it for you to do your work, take care of things at home, or get along with other people?: Not difficult at all Total Score: 0 COPD Assessment Test [CAT] - Questions Never cough = 0, Cough all the time = 5: 2 No phlegm = 0, Chest full of phlegm = 5: 1 No chest tightness = 0, Chest very tight = 5: 2 No breathless w/exertion = 0, Very breathless w/exertion = 5: 3 No limitations w/activity = 0, Very limited w/activity = 5: 2 Confident leaving home = 0, Not at all confident = 5: 1 Sleep soundly = 0, Don't sleep soundly = 5: 2 Lots of energy = 0, No energy at all = 5: 1 Total CAT score:: 14 Self-Efficacy 90-Day Re-eval Assessment We would like to know how confident you are in doing certain activities. Please select your confidence level for:: Select your confidence level for the following using the scale 1-10 where 1 is not at all confident and 10 is totally confident. Your score is the average of all 6 responses. Fatigue: How confident are you that you can keep the fatigue caused by your disease from interfering with the things you want to do? Select Number: 10 Physical Discomfort or Pain: How confident are you that you can keep the physical discomfort or pain of your disease from interfering with the things you want to do? Select Number: 10 Emotional Distress: How confident are you that you can keep the emotional distress caused by your disease from interfering with the things you want to do? Select Number: 10 Other Symptoms or Health Problems: How confident are you that you can keep other symptoms or health problems from interfering with the things you want to do? Select Number: 10 Different Tasks and Activities: How confident are you that you can do the different tasks and activities needed to manage your health condition so as to reduce your need to see a doctor? Select Number: 10 Medication: How confident are you that you can do things other than just taking medication to reduce how much your illness affects your everyday life? Select Number: 10 Total Score:: 10
== END 2018-05-25 23:59 ==
LOC: PR 09:30
PROVIDERS: Family Provider Internal Medicine; PCP Internal Medicine; Visit Provider Internal Medicine Critical Care Medicine
DX: J44.9 Chronic obstructive pulmonary disease, unspecified (principal)
CPT/HCPCS: 97150; G0424

== ENCOUNTER 2018-06-24 09:30 | Outpatient (RCR) | payer OTHER, SELFPAY ==
[2018-05-26 00:48] VITALS: PULSE 88; RESP 18; TEMP 37.1; O2SAT 92
--- NOTE | 2018-06-18 11:32 | PR.ITP_ITS ---
General Information - Education/Goals Individual Counseling: Discharge Assessment: Dyspnea control techniques at rest , activity, and ADLs - goal met, ADL management and pacing - goal met, Panic & depression management - goal met, Nutrition & weight management - progressing, Home exercise plan & guidelines - goal met Patient Goals: Breathe better: Discharge Assessment - goal met, Increase endurance/stamina: Discharge Assessment - goal met, Improve diet and nutrition: Discharge Assessment - progressing, Symptom management: Discharge Assessment - goal met, Improve weight: Discharge Assessment - progressing Exercise - Final Assessment - Exercise Prescription Mode:: Treadmill, NuStep, Arm Ergometer Frequency (x/week): 3 Duration:: 30 Aerobic Exercise [30-60 min 3-7x/week]:: Met Further followup [see D/C Summary]:: No Target heart rate: 112-120 Rae-13 - Home Exercise Home Exercise:: No Disease Management - Final - Medications Medication reassessment: Yes Pt demonstrates correct technique timing for MDI, Yes Pt demonstrates correct technique timing for DPI, Yes Pt demonstrates correct technique timing for NEB, Yes Pt demonstrates correct technique timing for spacer - returned use of spacer - Bronchial Hygiene Bronchial Hygiene Plan: Yes Pt demonstrates correctly for effective cough, Yes Pt demo correct for improved hydration, Yes Pt demo correct for evalute sputum Psychosocial - Final Assess - Assessment Depression reassess: Management of stress: Met, Management of depression: Met, Practicing interventions: Met Tobacco - Final Assessment - Program Goals Tobacco Program Goals: Complete smoking cessation. Attend education classes. Improve Knowledge Test score - Stage of Change Stages of Change:: Action - Learning Barriers Learning Barriers: Participates in education - Family Support Do you have family support?: Yes - Tobacco Use Tobacco Use: Non-smoker Do you use smokeless tobacco?: No - Intervention Smoking Cessation Referral:: No Education Schedule Given:: Yes - Education Education Goal Reached?: Yes Nutrition/Wt Mgmt - Final - Weight Management Final Weight Assessment: Wt stable Weight:: 176 lb - BMI 176 Weight Goals Progress:: Progressing Patient Health Questionnaire Discharge Assessment 1. Little interest or pleasure in doing things: Not at all 2. Feeling down, depressed, or hopeless: Not at all 3. Trouble falling or staying asleep, or sleeping too much: Not at all 4. Feeling tired or having little energy: Not at all 5. Poor appetite or overeating: Not at all 6. Feeling bad about yourself -- or that you are a failure or have let yourself or your family down: Not at all 7. Trouble concentrating on things, such as reading the newspaper or watching television: Not at all 8. Moving or speaking so slowly that other people could have noticed. Or the opposite - being so fidgety or restless that you have been moving around a lot more than usual: Not at all 9. Thoughts that you would be better off , or of hurting yourself in some way: Not at all How difficult have these problems made it for you to do your work, take care of things at home, or get along with other people?: Not difficult at all Total Score: 0 COPD Knowledge Test Discharge COPD is a lung disease that:: Makes it hard to breathe & gets worse over time In the [place] the term COPD describes 2 main lung conditions:: Emphysema & chronic bronchitis The most common lung irritant that causes COPD is:: Cigarette smoke Common signs and symptoms of COPD include:: An ongoing cough/cough that produces a large amount of mucus, & SOB If you have COPD, what steps can you take?: All of the above Swelling of the ankles is common in COPD:: False Fatigue [tiredness] is common in COPD:: True Wheezing is common in COPD:: True Crushing chest pain is common in COPD:: False Rapid weight loss is common in COPD:: False Breathlessness is a normal response to exercise: True Exercise should be avoided if it makes you short of breath: False All bronchodilators act within 10 minutes: True A spacer device increases the medication to the lungs: True Annual flu vaccine is recommended for pts w/lung disease: True COPD Knowledge Test Total Score:: 14 COPD Assessment Test [CAT] - Questions Never cough = 0, Cough all the time = 5: 2 No phlegm = 0, Chest full of phlegm = 5: 1 No chest tightness = 0, Chest very tight = 5: 2 No breathless w/exertion = 0, Very breathless w/exertion = 5: 1 No limitations w/activity = 0, Very limited w/activity = 5: 2 Confident leaving home = 0, Not at all confident = 5: 1 Sleep soundly = 0, Don't sleep soundly = 5: 1 Lots of energy = 0, No energy at all = 5: 2 Total CAT score:: 12 Self-Efficacy Discharge Assessment We would like to know how confident you are in doing certain activities. Please select your confidence level for:: Select your confidence level for the following using the scale 1-10 where 1 is not at all confident and 10 is totally confident. Your score is the average of all 6 responses. Fatigue: How confident are you that you can keep the fatigue caused by your disease from interfering with the things you want to do? Select Number: 10 Physical Discomfort or Pain: How confident are you that you can keep the physical discomfort or pain of your disease from interfering with the things you want to do? Select Number: 10 Emotional Distress: How confident are you that you can keep the emotional distress caused by your disease from interfering with the things you want to do? Select Number: 10 Other Symptoms or Health Problems: How confident are you that you can keep other symptoms or health problems from interfering with the things you want to do? Select Number: 10 Different Tasks and Activities: How confident are you that you can do the different tasks and activities needed to manage your health condition so as to reduce your need to see a doctor? Select Number: 10 Medication: How confident are you that you can do things other than just taking medication to reduce how much your illness affects your everyday life? Select Number: 10 Total Score:: 10 Nutrition Survey - Nutrition Survey Instructions Scoring Instructions: Scoring is as follows: Yes = 1 points. No = 0 point. Patient score that is >/=12 is considered to be at potential nutritional risk and could benefit from a referral to a registered dietitian. - Nutrition Survey Discharge Have you lost >10 lbs over the past 2 months without trying?: No Are you following a special diet at home for diabetes, low fat, or low salt?: No Are you interested in meeting with a dietitian for help understanding your diet? : No Do you eat less than 3 meals a day?: No Do you eat fatty meats (palmer, sausage, ribs, etc), fried foods, desserts, large amounts of salad dressings, margarine, butter, or cheese most days?: Yes Do you have food allergies? [Enter types in comment field]: No Do you eat in restaurants more than 3 times a week?: No Do you season food with salt, seasoning salt, or garlic salt?: Yes Do you used canned, boxed, frozen meals, or soups, seasoning packets?: Yes Total Score:: 3
== END 2018-06-25 23:59 ==
LOC: PR 09:30
PROVIDERS: Family Provider Internal Medicine; PCP Internal Medicine; Visit Provider Internal Medicine Critical Care Medicine
DX: J44.9 Chronic obstructive pulmonary disease, unspecified (principal)
CPT/HCPCS: 97150; G0424

== ENCOUNTER 2018-07-01 09:30 | Outpatient (RCR) | payer OTHER, SELFPAY ==
[2018-06-26 00:47] VITALS: PULSE 88; RESP 18; TEMP 37.1; O2SAT 92
--- NOTE | 2018-07-19 14:13 | PR.ITP_ITS ---
Exercise - Final Assessment - Exercise Prescription Mode:: Treadmill, Airdyne, NuStep, Arm Ergometer Frequency (x/week): 3 - Graduated 07/01/18 Duration:: 35 Aerobic Exercise [30-60 min 3-7x/week]:: Met Target heart rate: 114-121 Rae-13 MET Level:: 3.2 - Home Exercise Home Exercise:: Yes Disease Management - Final - Hypoxemia Final Assessment: Demonstrates knowledge of O2 Rx with exercise - Medications Medication list reviewed:: Yes Taking medications 100% of the time:: Met Medication reassessment: Yes Pt demonstrates correct technique timing for MDI, Yes Pt demonstrates correct technique timing for DPI, Yes Pt demonstrates correct technique timing for NEB, Yes Pt demonstrates correct technique timing for spacer - return use of spacer/MDI - Bronchial Hygiene Bronchial Hygiene Plan: Yes Pt demonstrates correctly for effective cough, Yes Pt demo correct for device - return use of Acapella device, Yes Pt demo correct for hand hygiene, Yes Pt demo correct for verbalize when to call MD Psychosocial - Final Assess - Assessment Depression reassess: Management of stress: Met, Management of depression: Met, Practicing interventions: Met Tobacco - Final Assessment - Program Goals Tobacco Program Goals: Complete smoking cessation. Attend education classes. Improve Knowledge Test score - Stage of Change Stages of Change:: Action - Learning Barriers Learning Barriers: Participates in education - Family Support Do you have family support?: Yes - Tobacco Use Tobacco Use: Non-smoker Do you use smokeless tobacco?: No - Intervention Smoking Cessation Referral:: No Education Schedule Given:: Yes - Education Education Goal Reached?: Yes Nutrition/Wt Mgmt - Final - Weight Management Weight:: 181 lb 8 oz Weight Goals Progress:: Goal met Patient Health Questionnaire Discharge Assessment 1. Little interest or pleasure in doing things: Not at all 2. Feeling down, depressed, or hopeless: Not at all 3. Trouble falling or staying asleep, or sleeping too much: Not at all 4. Feeling tired or having little energy: Not at all 5. Poor appetite or overeating: Not at all 6. Feeling bad about yourself -- or that you are a failure or have let yourself or your family down: Not at all 7. Trouble concentrating on things, such as reading the newspaper or watching television: Not at all 8. Moving or speaking so slowly that other people could have noticed. Or the opposite - being so fidgety or restless that you have been moving around a lot more than usual: Not at all 9. Thoughts that you would be better off , or of hurting yourself in some way: Not at all How difficult have these problems made it for you to do your work, take care of things at home, or get along with other people?: Not difficult at all Total Score: 0 COPD Knowledge Test Discharge COPD is a lung disease that:: Makes it hard to breathe & gets worse over time In the [place] the term COPD describes 2 main lung conditions:: Emphysema & chronic bronchitis The most common lung irritant that causes COPD is:: Cigarette smoke Common signs and symptoms of COPD include:: An ongoing cough/cough that produces a large amount of mucus, & SOB If you have COPD, what steps can you take?: All of the above Swelling of the ankles is common in COPD:: False Fatigue [tiredness] is common in COPD:: True Wheezing is common in COPD:: True Crushing chest pain is common in COPD:: False Rapid weight loss is common in COPD:: False Breathlessness is a normal response to exercise: True Exercise should be avoided if it makes you short of breath: False All bronchodilators act within 10 minutes: False A spacer device increases the medication to the lungs: True Annual flu vaccine is recommended for pts w/lung disease: True COPD Knowledge Test Total Score:: 15 COPD Assessment Test [CAT] - Questions Never cough = 0, Cough all the time = 5: 3 No phlegm = 0, Chest full of phlegm = 5: 2 No chest tightness = 0, Chest very tight = 5: 1 No breathless w/exertion = 0, Very breathless w/exertion = 5: 3 No limitations w/activity = 0, Very limited w/activity = 5: 2 Confident leaving home = 0, Not at all confident = 5: 2 Sleep soundly = 0, Don't sleep soundly = 5: 3 Lots of energy = 0, No energy at all = 5: 3 Total CAT score:: 19 Self-Efficacy Discharge Assessment We would like to know how confident you are in doing certain activities. Please select your confidence level for:: Select your confidence level for the following using the scale 1-10 where 1 is not at all confident and 10 is totally confident. Your score is the average of all 6 responses. Fatigue: How confident are you that you can keep the fatigue caused by your disease from interfering with the things you want to do? Select Number: 10 Physical Discomfort or Pain: How confident are you that you can keep the physical discomfort or pain of your disease from interfering with the things you want to do? Select Number: 10 Emotional Distress: How confident are you that you can keep the emotional distress caused by your disease from interfering with the things you want to do? Select Number: 10 Other Symptoms or Health Problems: How confident are you that you can keep other symptoms or health problems from interfering with the things you want to do? Select Number: 10 Different Tasks and Activities: How confident are you that you can do the different tasks and activities needed to manage your health condition so as to reduce your need to see a doctor? Select Number: 10 Medication: How confident are you that you can do things other than just taking medication to reduce how much your illness affects your everyday life? Select Number: 10 Total Score:: 10 Nutrition Survey - Nutrition Survey Instructions Scoring Instructions: Scoring is as follows: Yes = 1 points. No = 0 point. Patient score that is >/=12 is considered to be at potential nutritional risk and could benefit from a referral to a registered dietitian. - Nutrition Survey Discharge Have you lost >10 lbs over the past 2 months without trying?: No Are you following a special diet at home for diabetes, low fat, or low salt?: Yes Are you interested in meeting with a dietitian for help understanding your diet? : No Do you eat less than 3 meals a day?: Yes Do you eat fatty meats (palmer, sausage, ribs, etc), fried foods, desserts, large amounts of salad dressings, margarine, butter, or cheese most days?: No Do you have food allergies? [Enter types in comment field]: No Do you eat in restaurants more than 3 times a week?: No Do you season food with salt, seasoning salt, or garlic salt?: No Do you used canned, boxed, frozen meals, or soups, seasoning packets?: No Total Score:: 2
== END 2018-07-02 09:30 | disposition home or self-care (01) ==
LOC: PR 09:30
PROVIDERS: Family Provider Internal Medicine; PCP Internal Medicine; Visit Provider Internal Medicine Critical Care Medicine
DX: J44.9 Chronic obstructive pulmonary disease, unspecified (principal)
CPT/HCPCS: 97150; G0424

== ENCOUNTER → 2018-07-05 09:59 | Outpatient (CLI) | payer OTHER, SELFPAY | PROVIDERS: Family Provider Internal Medicine; PCP Internal Medicine; Visit Provider Nurse Practitioner Acute Care | DX: R05 Cough (principal) | CPT/HCPCS: 87070; 87077; 87205 ==

== ENCOUNTER → 2018-09-16 11:55 | Outpatient (CLI) | payer OTHER, SELFPAY ==
--- NOTE | 2018-09-16 13:20 | RAD_ITS ---
STUDY: X-RAY CHEST REASON FOR EXAM: Female, 68 years old. Short of breath and dyspnea. TECHNIQUE: Frontal and lateral views of the chest. COMPARISON: Chest x-ray and CT scan 03/25/2016. FINDINGS: The lungs are hyperexpanded. There are coarsened interstitial markings suggestive of mild chronic fibrosis. Stable asymmetric scarring in the left apex. No gross focal infiltrates. No gross effusions. Normal size heart. Normal mediastinum and jose eduardo. Normal visualized pulmonary arteries. Normal visualized aortic arch and descending thoracic aorta. Normal visualized thoracic spine. Normal visualized ribs, clavicles, and shoulders. There is no demonstrated abnormality of the visualized soft tissue structures of the upper abdomen. RAD/Chest PA and Lateral IMPRESSION: No change or acute abnormality. 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 Electronically Signed: Los Toro MD at 16:58 EDT , Service support ,
[2018-09-16 13:43] LABS: Anion Gap 8 (5-15); BUN 10 mg/dL (7-18); BUN/Creat Ratio 14.7 RATIO (10-20); Calcium,Total 8.9 mg/dL (8.5-10.1); Chloride 104 mmol/L (98-107); Creatinine, Serum 0.68 mg/dL (0.55-1.02); EST Glomerular Filtration Rate 91 mL/min (>60); Est Glom Filt Rate - Afr Amer 110 mL/min (>60); Glucose 105 mg/dL (74-106); Sodium Level 140 mmol/L (136-145)
[2018-09-16 14:05] LABS: BNP,B-Type NATRIURETIC PEPTIDE 27.7 pg/mL (0-100)
== END ==
PROVIDERS: Family Provider Internal Medicine; PCP Internal Medicine; Referring Provider Nurse Practitioner Acute Care; Visit Provider Nurse Practitioner Acute Care
DX: R06.02 Shortness of breath (principal)
CPT/HCPCS: 36415; 71046; 80048; 83880

== ENCOUNTER → 2019-02-11 10:22 | Outpatient (CLI) | payer OTHER, SELFPAY ==
[2018-11-27 09:41] VITALS: BMI 30.9
== END ==
PROVIDERS: Family Provider Internal Medicine; PCP Internal Medicine; Referring Provider Nurse Practitioner Acute Care; Visit Provider Nurse Practitioner Acute Care
DX: R05 Cough (principal)
CPT/HCPCS: 87070; 87077; 87205

== ENCOUNTER → 2019-02-11 10:29 | Outpatient (CLI) | payer OTHER, SELFPAY ==
[2018-11-27 09:41] VITALS: BMI 30.9
== END ==
PROVIDERS: Family Provider Internal Medicine; PCP Internal Medicine; Referring Provider Nurse Practitioner Acute Care; Visit Provider Nurse Practitioner Acute Care
DX: R05 Cough (principal)
CPT/HCPCS: 87633

== ENCOUNTER → 2019-03-21 13:42 | Outpatient (CLI) | payer OTHER, SELFPAY ==
[2019-03-21 12:45] VITALS: BMI 31.9
[2019-03-21 14:49] LABS: Absolute Lymphocyte Count 1.83 X10^3/ul (0.83-4.51); Basophil# 0.02 X10^3/uL; Basophil% 0.3 % (0-1); Eosinophil# 0.25 X10^3/uL; Eosinophils% 3.3 % (0-5); Hematocrit 42.9 % (37-47); Hemoglobin 14.4 g/dl (12.0-15.0); Lymphocyte # 1.83 X10^3/ul (4.0); Lymphocyte % 24.5 % (19-41); Mean Corp Hgb Conc 33.6 g/gl (32-36); Mean Corpuscular Hgb 32.7 pg (27.0-32.0); Mean Corpuscular Volume 97.3 fL (81-99); Mean Platelet Vol. 10.5 fl (6.2-12.0); Monocyte# 0.42 X10^3/uL; Monocyte% 5.6 % (0-10); Neutrophil # 4.95 X10^3/uL (2.7-7.7); Neutrophil % 66.2 % (47-70); Platelet Count 211 K/mm3 (150-450); RBC Distribution Width CV 12.9 % (11.6-14.6); RBC Distribution Width SD 45.5 fl (35.1-43.9); Red Blood Count 4.41 M/mm3 (4.2-5.4); White Blood Count 7.5 K/mm3 (4.4-11.0)
[2019-03-21 14:55] LABS: POSITIVE COUNT NO; POSITIVE DIFFERENTIAL NO; POSITIVE MORPHOLOGY NO
[2019-03-28 03:06] LABS: Alternaria alternata <0.10 kU/L (Class 0); Bermuda Grass <0.10 kU/L (Class 0); Bluegrass, Kentucky <0.10 kU/L (Class 0); Cat Hair/Dander, Standard <0.10 kU/L (Class 0); D farinae Mite 0.13 kU/L (Class 0/I); D pteronyssinus 0.17 kU/L (Class 0/I); Dog Epithelia <0.10 kU/L (Class 0); Elm, American White <0.10 kU/L (Class 0); Oak, White <0.10 kU/L (Class 0); Plantain, English <0.10 kU/L (Class 0); Ragweed, Short/Common <0.10 kU/L (Class 0)
[2019-03-28 12:21] LABS: Mouse Urine <0.10 kU/L (Class 0)
[2019-04-01 23:11] LABS: Aspirgillus flavus Negative (Neg:<1:1); Aspirgillus fumigatus Negative (Neg:<1:1); Aspirgillus niger Negative (Neg:<1:1)
[2019-04-02 11:03] LABS: Immunoglobulin E 45 IU/mL (6-495)
== END ==
PROVIDERS: Family Provider Internal Medicine; PCP Internal Medicine; Referring Provider Nurse Practitioner Acute Care; Visit Provider Nurse Practitioner Acute Care
DX: J44.1 Chronic obstructive pulmonary disease with (acute) exacerbation (principal); J45.901 Unspecified asthma with (acute) exacerbation
CPT/HCPCS: 36415; 82785; 85025; 86003; 86606

== ENCOUNTER → 2019-03-31 10:52 | Outpatient (CLI) | payer OTHER, SELFPAY ==
[2019-03-21 12:45] VITALS: BMI 31.9
== END ==
LOC: PAVLAB 10:54 → LABSPEC 13:00
PROVIDERS: Family Provider Internal Medicine; PCP Internal Medicine; Referring Provider Nurse Practitioner Acute Care; Visit Provider Nurse Practitioner Acute Care
DX: R05 Cough (principal)
CPT/HCPCS: 87070; 87205

== ENCOUNTER → 2019-06-18 10:24 | Outpatient (CLI) | payer OTHER, SELFPAY ==
[2019-04-22 09:53] VITALS: BMI 31.9
--- NOTE | 2019-06-18 10:26 | BI_ITS ---
MAMMOGRAPHY - BILATERAL SCREENING 3-D TOMOSYNTHESIS REASON FOR EXAM: Female, 68 years old. Bilateral Screening 3-D tomosynthesis PERTINENT HISTORY: Sister with breast cancer.. TECHNIQUE: 2-D mammograms and 3-D Tomosynthesis of the breast (s) were performed. CAD was performed. COMPARISON: 06/27/2017 FINDINGS: The breast composition is almost entirely fat. Scattered benign calcifications are seen. No dense spiculated masses or suspicious microcalcifications are identified. No architectural distortion is identified. There is no skin thickening or retraction. There has been no significant change since the prior study. BI/SCREEN MAMM (CAD) W/SHAILESH BILAT IMPRESSION: No mammographic signs of malignancy. Routine yearly mammograms recommended. ASSESSMENT CATEGORY: BIRADS Category 1: Negative. A letter regarding these results will be sent to the patient by the facility within 30 days. FOLLOW UP RECOMMENDATION: Yearly follow up mammogram recommended. (A) Approximately 10% of breast cancers are not detected by mammography. A normal mammogram should not delay biopsy of a clinically suspicious abnormality. Pending Final Proof Editing
== END ==
PROVIDERS: Family Provider Internal Medicine; PCP Internal Medicine; Referring Provider Obstetrics & Gynecology; Visit Provider Obstetrics & Gynecology
DX: Z12.31 Encounter for screening mammogram for malignant neoplasm of breast (principal)
CPT/HCPCS: 77063; 77067

== ENCOUNTER → 2019-08-13 11:11 | Outpatient (CLI) | payer OTHER, SELFPAY ==
[2019-08-13 08:37] VITALS: BMI 31.7
== END ==
PROVIDERS: Family Provider Internal Medicine; PCP Internal Medicine; Referring Provider Internal Medicine Cardiovascular Disease; Visit Provider Internal Medicine Cardiovascular Disease
DX: R00.2 Palpitations (principal)
CPT/HCPCS: 93225; 93226

== ENCOUNTER → 2019-09-16 10:08 | Outpatient (CLI) | payer OTHER, SELFPAY ==
[2019-08-13 08:37] VITALS: BMI 31.7
--- NOTE | 2019-09-16 10:09 | ECHOCS_ITS ---
Reason For Study: Arrhythmia Procedure This was a 2D Doppler, Color Flow transthoracic echocardiogram. Contrast injection was performed. The study was technically difficult. *DEFINITY REACTION* Dizziness and an elevation in BP. 210/104 (10:42am) 190/98 (10:45 am) 182/94 (10:49am) 164/92 (10:55am). Left Ventricle Normal LV size. Left ventricular systolic function is normal. The estimated ejection fraction is 70 %. Stage 1 diastolic dysfunction. No regional wall motion abnormalities noted. Right Ventricle Normal RV size. Normal systolic function. Atria Normal left atrium. Normal right atrium. Mitral Valve Normal mitral valve. Tricuspid Valve The tricuspid valve is not well visualized. Aortic Valve The aortic valve is not well visualized. Pulmonic Valve The pulmonic valve is not well visualized. Great Vessels Normal aortic root. The pulmonary artery is normal size. Normal inferior vena cava. Pericardium/Pleural Small pericardial effusion. There are no echocardiographic indications of cardiac tamponade. Medication 22 gauge I.V. with prn adaptor inserted into right arm. Diluted definity 3ml given slow IV push to enhance endocardial definition. MMode/2D Measurements & Calculations LVIDd: 3.7 cm IVSd: 1.0 cm Ao root diam: 2.8 cm LVIDs: 2.4 cm LVPWd: 1.0 cm LA dimension: 3.3 cm FS: 33.5 % LAV(MOD-bp): 33.1 ml LA A4 area: 10.6 cm2 RA A4 area: 11.5 cm2 LAV(MOD-bp) Indexed: 17.5 ml/m2 LAV(MOD-sp2): 38.0 ml LAV(MOD-sp4): 25.1 ml Time Measurements MV dec time: 0.24 sec Doppler Measurements & Calculations MV E max hemanth: 55.2 cm/sec Lat Peak E' Hemanth: 6.2 cm/sec Med Peak E' Hemanth: 7.6 cm/sec MV A max hemanth: 95.1 cm/sec E/E' lat: 8.9 E/E' med: 7.2 MV E/A: 0.58 MV V2 max: 119.1 cm/sec MV P1/2t max hemanth: 68.2 cm/sec Ao V2 max: 108.7 cm/sec MV max P.7 mmHg MV P1/2t: 75.1 msec Ao max P.7 mmHg MV V2 mean: 61.7 cm/sec MV dec slope: 265.7 cm/sec2 MV mean P.8 mmHg MV V2 VTI: 18.6 cm MVA(P1/2t): 2.9 cm2 LV V1 max: 87.7 cm/sec PA V2 max: 97.3 cm/sec LV V1 max P.1 mmHg Interpretation Summary Normal LV size. Left ventricular systolic function is normal. The estimated ejection fraction is 70 %. Stage 1 diastolic dysfunction. Contrast injection was performed. Ordering Physician: Maximo Thorpe Referring Physician: Maximo Thorpe Performed By: Shon Beaver RCS
== END ==
PROVIDERS: Family Provider Internal Medicine; PCP Internal Medicine; Referring Provider Internal Medicine Cardiovascular Disease; Visit Provider Internal Medicine Cardiovascular Disease
DX: R00.2 Palpitations (principal); I10 Essential (primary) hypertension
CPT/HCPCS: 93306; Q9957; A4216; C8929

== ENCOUNTER → 2020-09-29 10:50 | Outpatient (CLI) | payer OTHER, SELFPAY ==
[2020-08-19 10:04] VITALS: BMI 31.4
--- NOTE | 2020-09-29 10:52 | BI_ITS ---
MAMMOGRAPHY - BILATERAL SCREENING REASON FOR EXAM: Female, 70 years old. Routine annual screening examination. PERTINENT HISTORY: Sister with breast cancer. TECHNIQUE: Digital bilateral breast shailesh (3D mammographic acquisition) in the CC and MLO projections. 2-D mediolateral oblique (MLO) and craniocaudad (CC) views of both breasts were obtained. CAD: Full Field Digital Mammography with Computer Added Detection was performed. COMPARISON: Comparison is made with prior study dated 06/18/2019 and 06/27/2017. FINDINGS: Breast Composition: The breasts are almost entirely fatty. There is a new 1.3 cm x 1.2 cm nodule in the retroareolar region of the right breast. Correlation with ultrasound is recommended. No other significant abnormalities are identified. BI/SCREEN MAMM (CAD) W/SHAILESH BILAT IMPRESSION: New 1.3 cm x 1.2 cm nodule in the retroareolar region of the right breast as described. Correlation with ultrasound is recommended. ASSESSMENT CATEGORY: BIRADS Category 0: Incomplete. Need additional imaging evaluation. A letter regarding these results will be sent to the patient by the facility within 30 days. Approximately 10% of breast cancers are not detected by mammography. A normal mammogram should not delay biopsy of a clinically suspicious abnormality. [id number] Electronically Signed: Aquilino Rahman, at 13:27 EST , Service support ,
--- NOTE | 2020-09-29 10:58 | BD_ITS ---
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 COMPARISON: None. FINDINGS: Lumbar Spine (L1-L4): g/cm2 (1.029) / T-score (-1.3) / Z-score (0.4) Findings are suggestive of osteopenia with a low fracture risk. Left Femur Total: g/cm2 (0.760) / T-score (-2.0) / Z-score (-0.4) Left Femoral Neck: g/cm2 (0.655) / T-score (-2.8) / Z-score (-1.0) Right Femur Total: g/cm2 (0.756) / T-score (-2.0) / Z-score (-0.5) Right Femoral Neck: g/cm2 (0.696) / T-score (-2.5) / Z-score (-0.7) BD/Dexa Bone Density Study IMPRESSION: The patient is considered osteoporotic as outlined below according to World Sim[place] Organization (WHO) criteria with a high fracture risk. Reference Information: The T-score is the number of standard deviations above or below the standard which is normal for young adults at their peak bone mineral density. The World Health Organization (WHO) interprets the T-scores as follows: Above -1 Normal bone density Between -1 and -2.5 Osteopenia Equal to / or below -2.5 Osteoporosis As a practical clinical guideline, osteopenia may be graded as follows: Mild -1 through -1.5 Moderate -1.6 through -2.0 Severe -2.1 through -2.4 The Z-score is the number of standard deviations above or below age-matched controls. A Z-score of less than -1.5 would be considered abnormal. References: 1. NIH Osteoporosis and Related Bone Diseases www osteo.org 2. International Society for Clinical Densitometry www iscd.org 3. National Osteoporosis Foundation www nof.org Electronically Signed: Aquilino Rahman, at 9:38 EST , Service support ,
== END ==
PROVIDERS: PCP Internal Medicine; Referring Provider Internal Medicine; Visit Provider Internal Medicine
DX: Z78.0 Asymptomatic menopausal state (principal); Z12.31 Encounter for screening mammogram for malignant neoplasm of breast
CPT/HCPCS: 77063; 77067; 77080

== ENCOUNTER → 2020-10-06 09:24 | Outpatient (CLI) | payer OTHER, SELFPAY ==
[2020-08-19 10:04] VITALS: BMI 31.4
--- NOTE | 2020-10-06 09:26 | US_ITS ---
STUDY: ULTRASOUND BREAST - RIGHT REASON FOR EXAM: Female, 70 years old. Abnormal screening mammogram. TECHNIQUE: Axial and longitudinal images of the RIGHT breast were performed with a high resolution ultrasound transducer. # OF IMAGES: 17 COMPARISON: Comparison is made with prior mammogram dated 09/29/2020. FINDINGS: RIGHT Breast: The mammographic abnormality corresponds to a 1 cm x 0.5 cm x 0.7 cm irregular hypoechoic nodule in the retroareolar region of the right breast. A biopsy is recommended. US/Breast Limited Unilateral IMPRESSION: 1 cm x 0.5 cm x 0.7 cm irregular hypoechoic nodule in the retroareolar region of the right breast as described. Biopsy is recommended. ASSESSMENT CATEGORY: BIRADS Category 5: Highly Suggestive of Malignancy - Appropriate Action Should Be Taken. A letter regarding these results will be sent to the patient by the facility within 30 days. Electronically Signed: Aquilino Rahman, at 10:18 EST , Service support ,
== END ==
PROVIDERS: PCP Internal Medicine; Referring Provider Internal Medicine; Visit Provider Internal Medicine
DX: R92.8 Other abnormal and inconclusive findings on diagnostic imaging of breast (principal)
CPT/HCPCS: 76642

== ENCOUNTER → 2020-10-11 | Outpatient (CLI) | payer OTHER, SELFPAY ==
--- NOTE | 2020-10-11 | IMM_PTH ---
PATIENT: GAGE MEMBRENO LOC: [facility] U#:[id number] AGE/SX: 70/F ROOM: RE10/11/[address]: Dr. Tj Lucero MD : 1950 BED: DIS: 10/11/2020 SPEC #: [id number] RECD: 10/13/20 12:29 STATUS: BEVERLY REQ #: [id number] JEFFERSON: 10/11/20 00:[address]: Tj Lucero DEPT: IMMUNOHISTOCHEMISTRY RECD BY: Marie Zhang ENTERED: 10/13/20 12:30 SP TYPE: IMMUNO OTHR DR: Dr. Naima Linares MD Tissues: Right breast, NOS Procedures: CALPONIN-1 (add) CK5-6 (add) CK8 (add) SHARP-2 (add) E-CAD (add) HER2 CESAR (add) KI-67 (add) MAMM (add) P53 (add) HI (add) IN SITU HYBRIDIZATION GATA3 (add) P40 (add) ER (initial) PHYSICIAN & INSTITUTION [address] [address] SPECIMEN INFORMATION: Tissue Source: Right breast tissue Clinical Info: Right breast mass Specimen Number: [id number] CPT code: 05793, 29482 x9, 78388 x3, 45672 x2 METHODOLOGY: Deparaffinized sections of prefer/formalin-fixed tissue or PAP/DQ stained slides are incubated with monoclonal/polyclonal antibodies/oligonucleotide probes. Localization is made via biotin free immunoperoxidase method. Appropriate controls are performed and reacted as expected. Results on target cell population are indicated in the following table: RESULTS: ANTIBODY / CLONE RESULT P53 (DO-7) positive, 10%, dim Ki-67 (30-9) positive, 60% CK8 (25msrfR68) positive CK5-6 (D5 & 1684) negative Calponin-1 (TG145D) negative P40 (BC28) negative E-Cad (ECH-6) positive SHARP-2 (SP21) positive GATA3 (L50-823) positive Mammaglobin (31A5) positive MORPHOMETRIC ANALYSIS ER (clone 6F11) >95%, strong intensity HI (clone 16/1E2) >95%, strong intensity Her-2Neu (clone CB11) 1+-2+ The prognostic test for HER2 is performed on formalin-fixed paraffin embedded tissue. A 3+ (positive) staining pattern is defined as intense, homogeneous, complete, circumferential membranous staining in >10% of contiguous tumor cells. A similar weak (2+) staining pattern is interpreted as equivocal. ALIYAH follow-up testing is recommended for all equivocal cases. Positivity/negativity for ER/HI is reported if > or < 1% of the tumor cells are immuno- reactive, respectively. The ASCO/CAP criteria is used for scoring. Reference: Journal of Clinical Oncology, 2013; 31:5841-4195 & 2010; 16:7644-8751. Duration of fixation: 31 Hrs; Sample Adequate: Yes. These assays have not been validated on decalcified tissues. Results should be interpreted with caution given the likelihood of false negativity on decalcified specimens. These tests were developed and their performance characteristics determined by [facility]. They may not have been cleared or approved by the U.S. Food and Drug Administration. The FDA has determined that such clearance or approval is not necessary. The above immunohistochemical/dualISH markers are ordered and reviewed by the Pathologist. INTERPRETATION: Right breast, core biopsy: Invasive ductal carcinoma. Positive for estrogen receptors (favorable prognostic indicator). Positive for progesterone receptors (favorable prognostic indicator). Equivocal for overexpression of LPP2oyk. AM:ron 10/14/20 ADDENDUM ADDENDUM ADDENDUM ADDENDUM ADDENDUM ADDENDUM ADDENDUM ADDENDUM ADDENDUM ADDENDUM ADDENDUM ADDENDUM ADDENDUM ADDENDUM ADDENDUM ADDENDUM ADDENDUM ADDENDUM ADDENDUM ADDENDUM ADDENDUM ADDENDUM 10/15/2020 13:21 ADDENDUM 10/15/2020 13:21 ADDENDUM 10/15/2020 13:21 ADDENDUM 10/15/2020 13:21 ADDENDUM 10/15/2020 13:21 IN SITU HYBRIDIZATION (ALIYAH) FOR HER2 Interpretation: Not Amplified HER2 : CEP-17 Ratio: 1.05 Average HER2 Signal: 2.1 Average CEP-17 Signal: 2.0 Number of Tumor Cells Scanned: 50 Interpretative Information: The INFORM HER2 Dual ALIYAH DNA Probe Cocktail assay is performed on formalin-fixed paraffin embedded tissue and determines HER2 gene status by detecting HER2 copies via silver in situ hybridization (SISH) and Chromosome 17 copies via chromogenic red in situ hybridization on tumor cells. A minimum of 20 cells representing > 10% of contiguous and homogeneous invasive tumor cells were analyzed. HER2 gene status is classified as Non-amplified (HER2/Chr17 ratio < 2.0) or Amplified (HER2/Chr17 ratio greater than or equal to 2.0). If the resulting HER2/Chr17 ratio falls within 1.8 - 2.2 (Borderline), retesting by FISH is recommended. Reference: Darrin AC, StarkeyJailene Santos, et al: Recommendations for Human Epidermal Growth Factor Receptor 2 Testing in Breast Cancer: [place] Society of Clinical Oncology / College of [place] [employer] Clinical Practice Guideline Update. J Clin Oncol 31:4452-0286, 2013. AM:ron 10/15/20
--- NOTE | 2020-10-11 12:30 | BRBX_PTH ---
PATIENT: GAGE MEMBRENO LOC: [facility] U#:[id number] AGE/SX: 70/F ROOM: RE10/11/[address]: Dr. Tj Lucero MD : 1950 BED: DIS: 10/11/2020 SPEC #: [id number] RECD: 10/11/20 13:22 STATUS: BEVERLY REModesto #: [id number] JEFFERSON: 10/11/20 12:[address]: Tj Lucero DEPT: SURGICAL PATHOLOGY RECD BY: Giuliana Hairston ENTERED: 10/12/20 07:35 SP TYPE: BREAST BX OTHR DR: Dr. Naima Linares MD Tissues: Breast, NOS Procedures: Surgery Specimen Level IV HEADER OPERATION: Right breast biopsy PRE-OP DIAGNOSIS: Right breast mass TISSUE SUBMITTED: Right breast tissue FIXATION TIME: 31 hours MICROSCOPIC DIAGNOSIS Right breast, core biopsy: Invasive ductal carcinoma with the following characteristics: Maximal length - 10 millimeters Nuclear grade - 2/3 See comment. AM:ron 10/13/20 COMMENT ER/TX/Nft5qxj studies are being performed on sections of tumor and the results from this study will be reported separately ([id number]). MICROSCOPIC DESCRIPTION Slides are reviewed. GROSS DESCRIPTION Received in fixative is one container labeled with the patient name and designated right breast. The specimen consists of multiple elongated fragments of calderón-yellow fibroadipose tissue that in aggregate measure 2 x 0.3 x 0.1 cm. The entire specimen is submitted in one cassette. / SJ:ron 10/12/20 TC:0 CPT: 56844
[2020-10-11 12:31] VITALS: BMI 32.5
== END | disposition home or self-care (01) ==
LOC: LABSPEC 14:45
PROVIDERS: PCP Internal Medicine; Visit Provider Surgery
DX: N63.10 Unspecified lump in the right breast, unspecified quadrant (principal)
CPT/HCPCS: 88305; 88341; 88342; 88368

== ENCOUNTER 2020-11-08 07:19 | Day surgery (SDC) | payer OTHER, SELFPAY ==
[2020-10-27 15:01] VITALS: BMI 33.1
[2020-11-01 08:58] VITALS: BMI 33.7
--- NOTE | 2020-11-03 12:22 | EKG12_ITS ---
Test Reason : PRE OP Blood Pressure : / mmHG Vent. Rate : 109 BPM Atrial Rate : 109 BPM P-R Int : 142 ms QRS Dur : 084 ms QT Int : 334 ms P-R-T Axes : 082 068 071 degrees QTc Int : 449 ms Sinus tachycardia with with premature ventricular complexes Otherwise normal ECG Confirmed by LAURA VENTURA, ALISSA ([id number]), editorial assistant DIRK SAMUEL ([id number]) on 11/04/2020 11:17:41 AM Referred By: Tj Lucero Confirmed By:ALISSA SANCHEZ MD
--- NOTE | 2020-11-03 12:35 | RAD_ITS ---
STUDY: X-RAY CHEST REASON FOR EXAM: Female, 70 years old. Breast cancer on right side. TECHNIQUE: 2 views COMPARISON: Prior chest radiograph of 09/16/2018 FINDINGS: Hyperexpansion with stable emphysematous changes. Stable apical pleural thickening on the left and left hilar retraction. Stable bibasilar fibrotic changes. Negative for new consolidation, atelectasis, pulmonary masses or nodules. Normal size heart. Normal mediastinum and jose eduardo. Normal visualized pulmonary arteries. There is atherosclerotic calcification of the aortic arch with tortuosity. There are diffuse degenerative changes of the visualized thoracic spine. Normal visualized ribs, clavicles, and shoulders. There is no demonstrated abnormality of the visualized soft tissue structures of the upper abdomen. RAD/Chest PA and Lateral IMPRESSION: Stable chronic changes as described above including hyperexpansion, emphysematous changes, chronic apical thickening on the left and left hilar retraction. Bilateral lower lobe fibrotic changes. Negative for new consolidation, atelectasis, pulmonary masses or nodules. Negative for osteolytic or blastic bone lesions. Electronically Signed: Veronica Bowers MD at 23:54 EST , Service support ,
[2020-11-03 12:44] LABS: Mean Corp Hgb Conc 33.3 g/dL (32-36); Mean Corpuscular Hgb 32.5 pg (27.0-32.0); Mean Corpuscular Volume 97.6 fL (81-99); Mean Platelet Vol. 10.3 fl (6.2-12.0); Platelet Count 225 K/mm3 (150-450); RBC Distribution Width CV 12.1 % (11.6-14.6); RBC Distribution Width SD 43.2 fl (35.1-43.9); Red Blood Count 4.61 M/mm3 (4.2-5.4)
[2020-11-03 13:26] LABS: AST(SGOT) 65 U/L (15-37); Alanine Aminotransfer ALT/SGPT 120 U/L (13-56); Albumin, Serum 3.7 g/dL (3.2-5.0); Alkaline Phosphatase 142 U/L (45-117); Anion Gap 5 (5-15); BUN 16 mg/dL (7-18); BUN/Creat Ratio 20.9 RATIO (10-20); Calcium,Total 8.9 mg/dL (8.5-10.1); Chloride 104 mmol/L (98-107); Creatinine, Serum 0.76 mg/dL (0.55-1.02); EST Glomerular Filtration Rate 79 mL/min (>60); Est Glom Filt Rate - Afr Amer 96 mL/min (>60); Globulin 3.8 g/dL (2.2-4.2); Glucose 117 mg/dL (74-106); Potassium 3.8 mmol/L (3.5-5.1); Protein, Total 7.5 g/dL (6.4-8.2); Sodium Level 139 mmol/L (136-145)
[2020-11-08] VITALS (8 sets, daily range): BP systolic 135–181; BP diastolic 65–85; PULSE 89–103; RESP 18–20; TEMP 36.2–36.5; O2SAT 93–100; BMI 33.5
--- NOTE | 2020-11-08 | AXNB_PTH ---
PATIENT: GAGE MEMBRENO [place] [facility] [place][id number] AGE/SX: 70/F ROOM: RE11/08/[address]: Dr. Tj Lucero MD : 1950 BED: DIS: 11/08/2020 SPEC #: [id number] RECD: 11/08/20 10:58 STATUS: BEVERLY REModesto #: [id number] JEFFERSON: 11/08/20 00:[address]: Tj Lucero DEPT: SURGICAL PATHOLOGY RECD BY: Marie Zhang ENTERED: 11/08/20 11:21 SP TYPE: AX NODE BX OTHR DR: Dr. Naiam Linares MD Tissues: A - Axillary lymph node, NOS B - Right breast, NOS Procedures: Frozen Section (charge) Frozen Section Add'l ([facility]) Surgery Specimen Level V HEADER OPERATION: Stereotactic wire localization lumpectomy with sentinel lymph nodes PRE-OP DIAGNOSIS: Malignant neoplasm of central portion of right breast, ER positive TISSUE SUBMITTED: A - Right sentinel lymph nodes, FS at 1054, B - Right breast mass, short stitch - superior, wire - lateral, long stitch - anterior FROZEN SECTION DIAGNOSIS A. Right axillary sentinel lymph nodes, biopsy: Six out of six lymph nodes, negative for carcinoma. AM: 11/08/20 MICROSCOPIC DIAGNOSIS A. Right axillary sentinel lymph nodes, biopsy: Six out of six lymph nodes, negative for carcinoma. See comment. B. Right breast, lumpectomy: Invasive ductal carcinoma. See cancer checklist below. AM: 11/11/20 COMMENT A. Immunohistochemistry ([id number]) supports the above diagnosis. BREAST CANCER SUMMARY Procedure: Excision with wire guidance Specimen: Type: Partial breast Size: 11 x 5 x 4 cm Laterality: Right breast Invasive Tumor: Size: 2.5 x 2 x 1.2 cm Focality: Single focus Histologic type: Invasive ductal carcinoma. Histologic grade (Cambridge grade): Glandular/tubular differentiation score: 3 Nuclear pleomorphism score: 3 Mitotic count score: 1 Overall grade: 2 (score of 7) Lymphvascular invasion: Not identified Ductal Carcinoma In Situ: Not identified Lobular Carcinoma In Situ: Not identified Tumor extension: Skin: Not applicable Nipple: Not applicable Skeletal muscle: Not present Invasive Carcinoma Margins: Distance from closest margin: 5 mm from superior margin In Situ Carcinoma Margin: Not applicable Lymph Nodes: Number of sentinel lymph nodes examined: 6 Total number of lymph nodes examined: 6 No evidence of macrometastases, micrometastases or isolated tumor cells See specimens A Microcalcifications: Not identified Treatment Effect: Unknown Additional Pathologic Findings: Focal fibrocystic change. Focal intraductal hyperplasia without atypia and changes of previous biopsy. Ancillary Studies: Previously performed on same tumor ([id number] / [id number]) ER: positive (>95% strong intensity) KS: positive (>95% strong intensity) Fgo2ble: Equivocal (1-2+) IHC and negative by dualISH (1.05) PATHOLOGIC STAGE: T2 N0 Mx The above summary is in compliance with [employer] of [place] Path[employer] (CAP) Cancer Protocol Checklist and [place] Joint Committee on Cancer (AJCC) Staging Manual, 8th Ed. Case has been reviewed in consultation with Dr. Moncada who concurs with the above diagnosis. IDC:SJ MICROSCOPIC DESCRIPTION Slides are reviewed. GROSS DESCRIPTION A - Received fresh for frozen section diagnosis labeled with the patient's name is a specimen designated right sentinel lymph node. The specimen consists of multiple fragments of adipose tissue containing nodules consistent with lymph node measuring 5 x 3 x 1 cm. Six lymph nodes are identified measuring 0.2 to 0.6 cm in greatest dimension. The lymph nodes are submitted in entirety for frozen section diagnosis as follows: 1 - three lymph nodes, 2 - three lymph nodes. Sections will be submitted after additional fixation. / AM:ron 11/09/20 B - Received fresh for intraoperative consultation labeled with the patient's name and designated right breast mass, short stitch - superior, wire - lateral, long stitch - anterior. The specimen consists of a lumpectomy with needle localization measuring 11 x 5 x 4 cm. The specimen is inked as follows: anterior - yellow, posterior - black, superior - blue, inferior - green, medial - red and lateral - orange. Serial sections reveal a calderón, indurated mass measuring 2.5 x 2 x 1.2 cm. This mass is 0.5 cm away from the closest superior margin. This information is conveyed to the surgeon intraoperatively. Sections of the rest of the specimen reveal calderón-yellow adipose cut surfaces mixed with scant, fibrous area. Sulfur Burner sections are submitted in 12 cassettes as follows: 1 - perpendicular anterior, posterior and inferior margins, 2 - perpendicular medial and lateral margins, 3-8 - tumor with closest superior margin, entirely submitted, 9-12 - Sulfur Burner sections of the other area. Sections will be submitted after additional fixation. / GILLIAN:ron 11/09/20 TC:0 CPT: 72212 x2, 65615, 12064
--- NOTE | 2020-11-08 | IMM_PTH ---
PATIENT: GAGE MEMBRENO LOC: [facility] [place] U#:[id number] AGE/SX: 70/F ROOM: RE11/08/[address]: Dr. Tj Lucero MD : 1950 BED: DIS: 11/08/2020 SPEC #: [id number] RECD: 11/11/20 12:28 STATUS: BEVERLY REQ #: [id number] JEFFERSON: 11/08/20 00:[address]: Tj Lucero DEPT: IMMUNOHISTOCHEMISTRY RECD BY: Marie Zhang ENTERED: 11/11/20 12:29 SP TYPE: IMMUNO OTHR DR: Dr. Naima Linares MD Tissues: A - Axillary lymph node, NOS Procedures: CK7 (add) Pankeratin (initial) Pankeratin (add) PHYSICIAN & INSTITUTION [place] [address] SPECIMEN INFORMATION: Tissue Source: A - Right axillary sentinel lymph nodes, biopsy Clinical Info: Malignant neoplasm of central portion of right breast, ER positive Specimen Number: [id number] A1 & A2 CPT code: 14745, 48648 x3 METHODOLOGY: Deparaffinized sections of prefer/formalin-fixed tissue or PAP/DQ stained slides are incubated with monoclonal/polyclonal antibodies/oligonucleotide probes. Localization is made via biotin free immunoperoxidase method. Appropriate controls are performed and reacted as expected. Results on target cell population are indicated in the following table: RESULTS: ANTIBODY / CLONE RESULT Block A1 AE1-3 (AE1/AE3/PCK26) negative CK7 (OV-TL12/30) negative Block A2 AE1-3 (AE1/AE3/PCK26) negative CK7 (OV-TL12/30) negative These tests were developed and their performance characteristics determined by [facility]. They may not have been cleared or approved by the U.S. Food and Drug Administration. The FDA has determined that such clearance or approval is not necessary. The above immunohistochemical/dualISH markers are ordered and reviewed by the Pathologist. INTERPRETATION: A. Right axillary sentinel lymph nodes, biopsy: Six out of six lymph nodes negative for carcinoma. AM:ron 11/12/20
--- NOTE | 2020-11-08 07:39 | NM_ITS ---
PROCEDURE: NUCLEAR MEDICINE Injection Reading Node - RIGHT breast(s). REASON FOR EXAM: Female, 70 years old. Right breast cancer. TECHNIQUE: Reading node localization using radionuclide methods of the RIGHT breast(s) was performed following subcutaneous administration of 1.1 mCi of of sulfur colloid Tc-99m. FINDINGS: 1.1 mCi of Tc labeled sulfur colloid was injected subcutaneously in the right periareolar region in 4 equal aliquots. NM/Lymph Node Injection Only IMPRESSION: Subcutaneous injection of 1.1 mCi of technetium sulfur colloid at the biopsy site for sentinel node imaging. Electronically Signed: Aquilino Rahman, at 8:58 EST , Service support ,
[2020-11-08] MEDS: Lactated Ringers 1,000 ML 100 ML IV (08:00)
--- NOTE | 2020-11-08 09:13 | HP.PCM_ITS ---
Problem List (1) Breast cancer, right Status: Acute Qualifiers: History and Physical Date of Admission: 11/08/20 Intake Intake Visit Reasons: right breast biopsy Chief Complaint: f/u breast biopsy Allergies Sulfa (Sulfonamide Antibiotics) Allergy (Verified 10/18/20 13:58) Rash ciprofloxacin [From Cipro] Adverse Reaction (Verified 10/18/20 13:58) irregular heart beats Medications Nebulizer & Supplies #1 ea 11/15/17 [Rx Confirmed 10/18/20] bupropion HCl 300 mg 24 hr tablet, extended release 300 mg PO QAM 02/04/18 [History Confirmed 10/18/20] diltiazem HCl 120 mg capsule,extended release 24 hr 120 mg PO BID cap 02/04/18 [History Confirmed 10/18/20] loratadine 10 mg tablet 10 mg PO QDAY 02/04/18 [History Confirmed 10/18/20] magnesium oxide 400 mg (241.3 mg magnesium) tablet 400 mg PO QDAY tab 02/04/18 [History Confirmed 10/18/20] albuterol sulfate 90 mcg/actuation aerosol inhaler 2 puff INHALATION Q4H PRN PRN #18 g 01/23/20 [Rx Confirmed 10/18/20] azelastine 137 mcg (0.1 %) nasal spray aerosol 1 spray INTRANASAL BID #30 ml 01/23/20 [Rx Confirmed 10/18/20] montelukast 10 mg tablet 10 mg PO QPM #30 tab 07/19/20 [Rx Confirmed 10/18/20] cholecalciferol (vitamin D3) 25 mcg (1,000 unit) capsule 25 mcg PO DAILY 08/19/20 [History Confirmed 10/18/20] omega-3 fatty acids 1,000 mg capsule 1,000 mg PO BID 08/19/20 [History Confirmed 10/18/20] vitamin E (dl, acetate) 400 unit capsule 450 mg PO DAILY 08/19/20 [History Confirmed 10/18/20] budesonide-formoterol HFA 160 mcg-4.5 mcg/actuation aerosol inhaler 2 puff INHALATION BID #1 ea 09/20/20 [Rx Confirmed 10/18/20] albuterol sulfate 2.5 mg INHALATION Q4H PRN #180 ml 10/06/20 [Rx Confirmed 10/18/20] PFSH Medical History Abnormal mammogram of right breast (Acute) Essential hypertension (Chronic) Hyperlipidemia (Chronic) PAUL treated with BiPAP (Chronic) Severe persistent asthma (Chronic) Chronic hypoxemic respiratory failure (Chronic) Stage 3 severe COPD by GOLD classification (Chronic) Bronchiectasis (Chronic) Hypersomnia (Chronic) Obesity (Chronic) Asthma with COPD with exacerbation (Resolved) COPD with acute exacerbation (Resolved) Pneumonia (Resolved) Vertigo (Resolved) Secondary pulmonary arterial hypertension (Ruled-out) Surgical History History of colonoscopy (Acute ~2014) History of right breast biopsy (Acute ~09/2020) History of wisdom tooth extraction (Acute) History of cataract extraction with lens replacement (Resolved) Family History Mother Lung cancer Diabetes Father Liver cancer Sister Colon cancer Sister Breast cancer Social History (Updated 10/18/20 @ 15:[address] Tj Lucero MD) second hand exposure: No alcohol intake: current alcohol intake frequency: 0-2 drinks per day Alcohol type: wine substance use type: does not use caffeine: Yes (3/day) what type of physical activity do you participate in: none HPI HPI HPI: GAGE MEMBRENO, is a 70 F who presents to the office today for surgical consultation regarding pathology from a ultrasound-guided needle core central right breast biopsy that I performed for her on October 11, 2020. This was because of an abnormal right mammogram and ultrasound imaging. As noted below she has a very strong family history. It is very pertinent that she has COPD and is on 3 to 4 L/min nasal prong oxygen. My previous notes reflect the following. 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 Is patient in pain?: No Allergies Sulfa (Sulfonamide Antibiotics) Allergy (Verified 10/11/20 12:31) Rash ciprofloxacin [From Cipro] Adverse Reaction (Verified 10/11/20 12:31) irregular heart beats Medications Nebulizer & Supplies #1 ea 11/15/17 [Rx Confirmed 10/11/20] bupropion HCl 300 mg 24 hr tablet, extended release 300 mg PO QAM 03/12/18 [History Confirmed 10/11/20] diltiazem HCl 120 mg capsule,extended release 24 hr 120 mg PO BID cap 02/04/18 [History Confirmed 10/11/20] loratadine 10 mg tablet 10 mg PO QDAY 02/04/18 [History Confirmed 10/11/20] magnesium oxide 400 mg (241.3 mg magnesium) tablet 400 mg PO QDAY tab 02/04/18 [History Confirmed 10/11/20] albuterol sulfate 90 mcg/actuation aerosol inhaler 2 puff INHALATION Q4H PRN PRN #18 g 01/23/20 [Rx Confirmed 10/11/20] azelastine 137 mcg (0.1 %) nasal spray aerosol 1 spray INTRANASAL BID #30 ml 01/23/20 [Rx Confirmed 10/11/20] montelukast 10 mg tablet 10 mg PO QPM #30 tab 07/19/20 [Rx Confirmed 10/11/20] cholecalciferol (vitamin D3) 25 mcg (1,000 unit) capsule 25 mcg PO DAILY 08/19/20 [History Confirmed 10/11/20] omega-3 fatty acids 1,000 mg capsule 1,000 mg PO BID 08/19/20 [History Confirmed 10/11/20] vitamin E (dl, acetate) 400 unit capsule 450 mg PO DAILY 08/19/20 [History Confirmed 10/11/20] budesonide-formoterol HFA 160 mcg-4.5 mcg/actuation aerosol inhaler 2 puff INHALATION BID #1 ea 09/20/20 [Rx Confirmed 10/11/20] albuterol sulfate 2.5 mg INHALATION Q4H PRN #180 ml 10/06/20 [Rx Confirmed 10/11/20] Is last menstrual period known: No Post menopausal: Yes Patient : No PFSH Medical History (Updated 10/11/20 @ 13:[address] Tj Lucero MD) Abnormal mammogram of right breast (Acute) Essential hypertension (Chronic) Hyperlipidemia (Chronic) PAUL treated with BiPAP (Chronic) Severe persistent asthma (Chronic) Chronic hypoxemic respiratory failure (Chronic) Stage 3 severe COPD by GOLD classification (Chronic) Bronchiectasis (Chronic) Hypersomnia (Chronic) Obesity (Chronic) Asthma with COPD with exacerbation (Resolved) COPD with acute exacerbation (Resolved) Pneumonia (Resolved) Vertigo (Resolved) Secondary pulmonary arterial hypertension (Ruled-out) Surgical History (Updated 10/11/20 @ 12:30 by Evon Meza) History of colonoscopy (Acute ~2014) History of right breast biopsy (Acute ~09/2020) History of wisdom tooth extraction (Acute) History of cataract extraction with lens replacement (Resolved) Family History Mother Lung cancer Diabetes Father Liver cancer Sister Colon cancer Sister Breast cancer Social History (Updated 10/11/20 @ 13:[address] Tj Lucero MD) Smoking Status: Former smoker second hand exposure: No alcohol intake: current alcohol intake frequency: 0-2 drinks per day Alcohol type: wine substance use type: does not use caffeine: Yes (3/day) what type of physical activity do you participate in: none HPI HPI HPI: GAGE MEMBRENO, is a 70 F who presents to the office today for surgical consultation regarding an abnormal right mammogram. The patient is referred by her primary care physician Dr. Harry Linares and a written compromise surgical consult recommendations will return to him. 70-year-old female. G3, . Menarche at age 11. First child born when she was 23. She did breast-feed. No history of previous breast biopsies. She does have a sister who developed breast cancer at age 64. The patient herself is not been on any estrogen medication. She was a longtime cigarette smoker. She quit about 3 to 3-1/2 years ago. She does suffer from emphysema/COPD. She sees Dr. Darnell Aranda for her pulmonology. At rest she is on 2 L/min of oxygen. With exertion she is on 4 L/min. She requires CPAP at night. She presented for routine screening mammography as noted below. This identified an item in the central right breast. Subsequently on October 06, 2020 right breast ultrasound was obtained. This demonstrated a 1 x 0.5 x 0.7 cm irregular hypoechoic nodule retroareolar area right breast BI-RADS Category 5. The patient herself has not been able to palpate a lesion. She is not any nipple discharge or bleeding. She claims that her other health issues are currently unchanged. She denies myocardial infarction or stroke. Denies DVT. No change in bowel habits. She thinks she had a colonoscopy within the past 4 years. [facility] [address] [place] [address] SCREEN MAMM (CAD) W/SHAILESH BILAT MR#: [id number] [facility][id number] : 1950F 70 From: Aquilino Rahman MD PCP:Dr. Naima Linares MD Status:[facility] Study:SCREEN MAMM (CAD) W/SHAILESH BILAT Date of Exam:09/29/20 Exam#[id number] Ordering Dr: Naima Linares MD MAMMOGRAPHY - BILATERAL SCREENING REASON FOR EXAM: Female, 70 years old. Routine annual screening examination. PERTINENT HISTORY: Sister with breast cancer. TECHNIQUE: Digital bilateral breast shailesh (3D mammographic acquisition) in the CC and MLO projections. 2-D mediolateral oblique (MLO) and craniocaudad (CC) views of both breasts were obtained. CAD: Full Field Digital Mammography with Computer Added Detection was performed. COMPARISON: Comparison is made with prior study dated 06/18/2019 and 06/27/2017. FINDINGS: Breast Composition: The breasts are almost entirely fatty. There is a new 1.3 cm x 1.2 cm nodule in the retroareolar region of the right breast. Correlation with ultrasound is recommended. No other significant abnormalities are identified. BI/SCREEN MAMM (CAD) W/SHAILESH BILAT IMPRESSION: New 1.3 cm x 1.2 cm nodule in the retroareolar region of the right breast as described. Correlation with ultrasound is recommended. ASSESSMENT CATEGORY: BIRADS Category 0: Incomplete. Need additional imaging evaluation. A letter regarding these results will be sent to the patient by the facility within 30 days. Approximately 10% of breast cancers are not detected by mammography. A normal mammogram should not delay biopsy of a clinically suspicious abnormality. [id number] Electronically Signed: Aquilino Rahman, at 13:27 EST [facility] [address] [facility] [place] [address] Breast Limited Unilateral MR#: [id number] [facility] #:[id number] : 1950F 70 From: Aquilino Rahman MD PCP:Dr. Naima Linares MD Status:REG CLI Study:Breast Limited Unilateral Date of Exam:10/06/20 Exam#[id number] Ordering Dr: Naima Linares MD STUDY: ULTRASOUND BREAST - RIGHT REASON FOR EXAM: Female, 70 years old. Abnormal screening mammogram. TECHNIQUE: Axial and longitudinal images of the RIGHT breast were performed with a high resolution ultrasound transducer. # OF IMAGES: 17 COMPARISON: Comparison is made with prior mammogram dated 09/29/2020. FINDINGS: RIGHT Breast: The mammographic abnormality corresponds to a 1 cm x 0.5 cm x 0.7 cm irregular hypoechoic nodule in the retroareolar region of the right breast. A biopsy is recommended. US/Breast Limited Unilateral IMPRESSION: 1 cm x 0.5 cm x 0.7 cm irregular hypoechoic nodule in the retroareolar region of the right breast as described. Biopsy is recommended. ASSESSMENT CATEGORY: BIRADS Category 5: Highly Suggestive of Malignancy - Appropriate Action Should Be Taken. A letter regarding these results will be sent to the patient by the facility within 30 days. Electronically Signed: Aquilino Rahman, at 10:18 EST , Service support , HPI HPI HPI: GAGE MEMBRENO, is a 70 F who presents to the office today for ROS General General: No weight change, appetite, fatigue, colon cancer, breast cancer or weakness HEENT HEENT: Yes eye surgery; no difficulty swallowing, eye injury, swollen glands or hoarseness Endo Endocrine: No thyroid disease, diabetes mellitus, thyroid cancer, Hair loss, heat intolerance or cold intolerance Breast Breast: Yes abnormal mammogram and abnormal US; no left breast lump, right breast lump, nipple discharge, breast pain or breast enlargement Musc Musculoskeletal: No back problems, arthritis, rheumatoid arthritis, gout or joint pain Cardio Cardiovascular: Yes high blood pressure; no murmur, pacemaker, heart disease, atrial fibrillation, heart attack, heart stent, palpitations, shortness of breat with exertion or chest pain Psych Psychiatric: No depression, anxiety or hearing voices Resp Respiratory: Yes shortness of breath, Yes sleep apnea, No cough, Yes COPD, Yes asthma, Yes emphysema, No wheezing Gastro Gastrointestinal: No abdominal pain, No nausea or vomiting, No diarrhea, No constipation, No blood in stool, No acid reflux, No hemorrhoids, No ulcers, No gallbladder problem, No black,tarry stools [place] Hematologic: No blood thinners, No blood disorders, No bleeding, No anemia, No blood clots Neuro Neurologic: No weakness Exam Const General: cooperative, comfortable, no acute distress Nutritional Appearance: obese Orientation: alert, awake [facility] Head: normal to inspection Eyes General: appearance normal, both eyes and all related structures Chest Breast Palpation: No nipple discharge Other: Right breast: No focal mass. No nipple discharge. No axillary or clavicular adenopathy Left breast: No focal mass. No nipple discharge. No axillary or clavicular adenopathy Resp Other: Poor respiratory excursion. Markedly increased anterior posterior diameter. No rales Cardio Rate: regular rate Rhythm: regular rhythm Heart Sounds: no murmurs Other: Mild tachycardia GI Other: Notably overweight, no hepatosplenomegaly, cannot palpate internal organs, nontender, normal bowel sounds Musc Cervical Spine: normal cervical lordosis Skin General: no rashes or lesions noted Neuro Cognition: normal cognition Extrem General: no calf tenderness Psych Affect: normal affect Office Procedures Biopsy Provider Documentation Ultrasound-guided needle core biopsy central right breast lesion Timeout and informed consent was obtained. 70-year-old female was taken the procedure room placed upon the table. The right shoulder roll was placed. Patient was subsequently further placed into a left lateral decubitus position. The breast was retracted. Was prepped with Betadine. 1% lidocaine mixed 50-50 with 0.5% Marcaine was used as a local anesthetic. Total of 10 cc was used. A small stab incision was created. A 14-gauge Monopty needle was advanced to prefire depth. Pre and post fire films were obtained. 3 separate cores were obtained. A marking clip was left in position. Pressure was held for hemostasis. Steri-Strip Telfa OpSite dressing applied. The specimens were immediately transferred in formalin for analysis. She tolerated the procedure well without apparent complication. Blood loss was minimal. Tj Lucero M.D., F.A.C.S. Alert Nurse Aide Evaluator Yes Biopsy Breast Biopsy: [id number] US Guidance Procedure Time Out Time Out Informed consent given: Yes Consent signed: Yes Time out checklist: patient, procedure, site marked/identified, positioning of patient, supplies available, allergies confirmed, team agrees on procedure Time out staff in room: Yes Time out verified: Yes Time out date: 10/11/20 Time out time: 12:34 Assessment & Plan Problems 1. Abnormal mammogram of right breast R92.8 Plan Abnormal right mammogram and breast ultrasound BI-RADS Category 5 highly suspicious for malignancy central right breast. I propose for the patient an ultrasound-guided needle core biopsy and she concurred and that was performed for her today. I am suspicious for malignancy. The patient will return to the office later this week to discuss pathology. I will then recommend hematology oncology consultation and particularly radiation oncology consultation. The patient has a smaller tumor and larger breast. She otherwise would be a better surgical candidate for breast conservation surgery. We will need to consult as to whether she would be a candidate for radiotherapy to the right breast pending her pulmonary status. She has had an opportunity to ask and have questions answered. I appreciate the opportunity of assisting with her surgical care. We will await her pathology. Copy: Dr. Harry Lucero M.D., F.A.C.S. HPI HPI HPI: GAGE MEMBRENO, is a 70 F who presents to the office today for Assessment & Plan Problems 1. Malignant neoplasm of central portion of right breast in female, estrogen receptor positive C50.111 Plan 70-year-old female who presents for pathology review as noted below showing invasive ductal carcinoma central right breast which is ER and WY positive. Right breast, core biopsy:Invasive ductal carcinoma with the following characteristics:Maximal length ?10 millimeters Nuclear grade ?2/3 ER (clone [id number]) >95%, strong intensity WY (clone 16/1E2) >95%, strong intensity Her-2Neu (clone CB11) 1+-2+ I had an extensive discussion with the patient today regarding the pathology. I recommend to her a stereotactic wire localization central right breast with blue dye and nuclear tracer right axillary sentinel lymph node biopsy and wire localized right breast lumpectomy. I discussed the technique, benefit, risk, alternatives. I have discussed the potential need for postoperative radiotherapy. Her COPD may represent a limiting feature. However the breast conservation surgery would be less general anesthesia is time less surgical intervention and less risk for operative complication. The patient's life span may be limited by her COPD. She may end up having favorable final pathology with a small tumor and may not require radiotherapy whatsoever as she is ER/WY positive. With that in mind I recommend to her hematology oncology and radiation oncology consultation preprocedure. She has had an opportunity to ask and have questions answered. We will tentatively look for a operative date for the breast conservation technique. She is well aware of the presence of COVID-19. I am not able to confirm to her that this will improve anywhere in the near future. I appreciate the ongoing opportunity of assisting with her surgical care Copy: Dr. Naima Lucero M.D., F.A.C.S. I have re-examined the patient. There are no clinical changes since date of exam. Procedure Criteria Procedure Type: Elective COVID Risk Discussion: The surgeon/proceduralist and patient have discussed in detail the risk of exposure to and/or potential harm posed by the COVID-19 virus with having a surgery/procedure at this time versus the risk of delaying the surgery/procedure. It is not possible to know either the risk of delaying the surgery or procedure or chance of getting an infection with perfect accuracy, but a joint decision was made between the patient and the surgeon/proceduralist to proceed at this time with the scheduled surgery/procedure as indicated on the consent form.
--- NOTE | 2020-11-08 09:14 | PCM.DC.BS ---
Discharge Diet: No Restrictions Discharge Activity: May Not Drive - for 2-3 days or while taking narcotic pain meds. May shower in (days): 1 Lifting Restrictions: 10 pounds for 1 week. Call your doctor if your incision/area has: Continuous Slow Oozing, Sudden Increased Bleeding Call your doctor if you observe: Fever of 101 or Higher Suture Line Care: Avoid Pulling/Pushing, Avoid Pinching/Bending Remove Dressing in (days):: 1 - Remove bulky dressing tomorrow. May leave any opsite dressing for 3-4 days[address] Keep dressing in place until your follow-up appointment. Additional Dressing/Incision Instructions:: Remove bulky dressing tomorrow. May leave any opsite dressing for 3-4 days. Keep dressing in place until your follow-up appointment. Allergies/Adverse Reactions: Allergies Sulfa (Sulfonamide Antibiotics) Allergy (Verified 11/08/20 07:49) Rash perflutren [From Definity] Adverse Reaction (Severe, Verified 11/08/20 07:49) Light headedness High Bloodpreasure, feeling faint ciprofloxacin [From Cipro] Adverse Reaction (Verified 11/08/20 07:49) irregular heart beats Medications to take at Discharge bupropion HCl 300 mg 24 hr tablet, extended release 300 mg PO QAM 02/04/18 loratadine 10 mg tablet 10 mg PO QDAY 02/04/18 magnesium oxide 400 mg (241.3 mg magnesium) tablet 400 mg PO QDAY tab 02/04/18 albuterol sulfate 90 mcg/actuation aerosol inhaler 2 puff INHALATION Q4H PRN PRN #18 g 01/23/20 cholecalciferol (vitamin D3) 25 mcg (1,000 unit) capsule 25 mcg PO DAILY 08/19/20 omega-3 fatty acids 1,000 mg capsule 1,000 mg PO BID 08/19/20 vitamin E (dl, acetate) 400 unit capsule 450 mg PO DAILY 08/19/20 albuterol sulfate 2.5 mg INHALATION Q4H PRN #180 ml 10/06/20 Montelukast [Singulair] 10 mg PO QHS 10/27/20 Diltiazem [Cardizem] 120 mg PO BID 11/01/20 Azelastine HCl 1 spray INTRANASAL BID 11/02/20 Budesonide/Formoterol Fumarate [Budesonide-Formoterol 160-4.5] 2 puff INHALATION BID 11/02/20 Calcium Carbonate [Elemental Calcium] 600 mg PO DAILY 11/02/20 Fluticasone 0.05% [Flonase Nasal [place]] 2 spray NASAL DAILY 11/02/20 Primary Care Physician: Naima Linares MD [Primary Care Provider] - Please Follow Up With: Tj Lucero MD - [phone] When: Call for appt. approx. 10 days
--- NOTE | 2020-11-08 09:30 | BI_ITS ---
SURGICAL BREAST SPECIMEN RADIOGRAPH CLINICAL: Document presence of mass in biopsy specimen. FINDINGS: Specimen shows presence of mass. Electronically Signed: Aquilino Rahman, at 12:02 EST , Service support , BI/Breast Biopsy Specimen
--- NOTE | 2020-11-08 09:47 | PCM.OPRPT ---
Problem List (1) Breast cancer, right Status: Acute Qualifiers: Report of Operation Date of Procedure: 11/08/20 Pre-Operative Diagnosis: Invasive ductal carcinoma central right breast Post-Operative Diagnosis: Same Surgery/Procedure Performed:: Stereotactic wire localization central right breast. Wire localized right breast lumpectomy with right axillary nuclear tracer and blue dye sentinel lymph node biopsy Description of Surgical Findings:: Timeout and informed consent was obtained. 70-year-old female was taken to the stereotactic unit. She was placed prone on the table. The right breast was placed in a lateral medial view. The density with marking clip was rapidly identified. Stereotactic images were obtained. Digital information was obtained on a single target site. The breast was prepped with Betadine. 1% lidocaine was used as a local anesthetic. A Kopan's needle was advanced to depth +15 mm. The wire was displaced. Stereotactic views demonstrated good localization. She was released from the device. Sterile dressings were applied. She was subsequently taken to the operating for definitive surgery. Timeout and informed consent was obtained. The patient was taken to the operating and placed supine on the table. The right arm was carefully placed in soft rolls at writing to the table. The right breast and axilla were sterilely prepped and draped. Isosulfan blue dye was injected retroauricularly. 2 cc. Massage was performed for 3 minutes. The patient had previously had nuclear tracer injected per radiology. An oblique incision was made in the right axilla. The patient is noted to be morbidly obese. This dissection was very challenging. Dissection was performed down through the subcutaneous tissue. Lymphatic tracking was identified. Very small lymph nodes were felt to be within the that lymphatic chain. It was technically very challenging and required two-person retraction in order to see deep enough to follow the lymphatics and carefully dissect them out. TREASURE clips were used for hemostasis. A conglomerate of axillary tissue was taken. Hemostasis obtained with electrocautery and hemoclips. An ABD was placed to assure hemostasis. Then a curvilinear incision was made in the outer mid right breast guided by the wire. The dissection actually instituted medially and slightly inferiorly at 6 o'clock position. Finally with palpation and localization by the wire the mass could be felt. Circumferential dissection was performed. The mass was subsequently incised. It was felt to be within the center of the specimen. Hemostasis was obtained with hemoclips and electrocautery. 4 small hemoclips were placed in the margins of the resection. Specimen mammogram was obtained. This demonstrated the lesion to be centrally placed with the previously placed marking clip. The subcutaneous deep tissues were approximated with interrupted 3-0 Vicryl so as to reapproximate some of the soft tissue loss. Subdermal tissues approximated with the same. Skin edges approximate running subicular 4-0 Monocryl. 0.5% Marcaine was used as a local anesthetic. A total of 30 cc was used at both sites. Skin edges approximated running subicular 4-0 Monocryl. Steri-Strips Telfa bulky dry dressings applied as well as a pressure dressing. Sponge and instrument and needle counts were reported to surgically correct Specimens right axillary sentinel lymph nodes, 6, all negative on frozen section; right central breast mass No drains. Blood loss minimal. Tj Lucero M.D., F.A.C.S. Type of Anesthesia:: General Anesthesiologist: Dmitri Gallardo
== END 2020-11-08 14:06 | disposition home or self-care (01) ==
LOC: SDC 07:19 → AC 07:20
PROVIDERS: PCP Internal Medicine; Referring Provider Surgery; Visit Provider Surgery
PROC: (CPT 19301; principal; 2020-11-08 10:30)
DX: C50.111 Malignant neoplasm of central portion of right female breast (principal); I10 Essential (primary) hypertension; E78.5 Hyperlipidemia, unspecified; G47.33 Obstructive sleep apnea (adult) (pediatric); J45.50 Severe persistent asthma, uncomplicated; J44.9 Chronic obstructive pulmonary disease, unspecified; J96.11 Chronic respiratory failure with hypoxia; F32.9 Major depressive disorder, single episode, unspecified; E66.01 Morbid (severe) obesity due to excess calories; Z99.81 Dependence on supplemental oxygen; Z68.33 Body mass index [BMI] 33.0-33.9, adult; Z79.51 Long term (current) use of inhaled steroids; Z79.899 Other long term (current) drug therapy; Z20.828 Contact with and (suspected) exposure to other viral communicable diseases; Z87.891 Personal history of nicotine dependence
CPT/HCPCS: 19301; 38525; 19281; 36415; 38792; 71046; 76098; 80053; 85027; 87426; 88305; 88307; 88331; 88332; 88341; 88342; 93005; A9541; C9803; J7120; J2405

== ENCOUNTER → 2021-02-14 12:13 | Outpatient (CLI) | payer OTHER, SELFPAY ==
[2020-07-19 09:45] VITALS: BMI 31.4
[2020-11-01 08:58] VITALS: BMI 33.7
[2021-02-09 08:28] VITALS: BMI 34.2
[2021-02-14 12:45] VITALS: PULSE 101; PULSE 104; PULSE 112; PULSE 113; PULSE 114; PULSE 116; O2SAT 86; O2SAT 89; O2SAT 90; O2SAT 93; O2SAT 94
--- NOTE | 2021-02-14 12:47 | CPS ---
Patient wears 2-4 lpm O2 at home. Patient wears 3-4 lpm pulse dose when ambulating outside the house, has a concentrator at home.
--- NOTE | 2021-02-15 09:42 | PCM.PSN.6M ---
PSN 6 Minute Walk Test - 6 Minute Walk Test 6 Minute Walk Test: 6 Minute Walk Test PSN:6-Minute Walk Test Start: 02/14/21 12:44 Freq: Status: Active Protocol: [id number] Document 02/14/21 12:45 LENARD (Rec: 02/14/21 12:49 LENARD [id number]) 6 Minute Walk Test Date Performed 02/14/21 Time Performed 12:30 Height 5 ft 3 in Weight: 190 lb Weight in Pounds 190.[address]: Darnell Aranda Assistive device used: None Pre-test Oxygen Delivery Method Room Air Pulse Ox (%) 93 Pulse Rate (60-100 beats/min) 101 H Dyspnea Rae Scale (0-10) 0 Exertion Rae Scale (6-20) 6 1st minute Oxygen Delivery Method Room Air Pulse Ox (%) 90 Pulse Rate (60-100 beats/min) 104 H 2nd minute Oxygen Delivery Method Room Air Pulse Ox (%) 86 Pulse Rate (60-100 beats/min) 116 H 3rd minute Oxygen Flow Rate (L/min) (L/min) 4 Oxygen Delivery Method Nasal Cannula Pulse Ox (%) 90 Pulse Rate (60-100 beats/min) 112 H 4th minute Oxygen Flow Rate (L/min) (L/min) 4 Oxygen Delivery Method Nasal Cannula Pulse Ox (%) 89 Pulse Rate (60-100 beats/min) 114 H 5th minute Oxygen Flow Rate (L/min) (L/min) 4 Oxygen Delivery Method Nasal Cannula Pulse Ox (%) 89 Pulse Rate (60-100 beats/min) 116 H 6th minute Oxygen Flow Rate (L/min) (L/min) 4 Oxygen Delivery Method Nasal Cannula Pulse Ox (%) 89 Pulse Rate (60-100 beats/min) 113 H Dyspnea Rae Scale (0-10) 4 Exertion Rae Scale (6-20) 13 Post-test Oxygen Flow Rate (L/min) (L/min) 4 Oxygen Delivery Method Nasal Cannula Pulse Ox (%) 94 Pulse Rate (60-100 beats/min) 104 H Full Laps Walked 10 Partial Lap, Number of Tiles Walked 30 Total Distance Walked (ft) 620 02/14/21 12:47 Cardiopulmonary Services by Ev Goldberg Patient wears 2-4 lpm O2 at home. Patient wears 3-4 lpm pulse dose when ambulating outside the house, has a concentrator at home. Initialized on 02/14/21 12:47 - END OF NOTE - Interpretation Interpretation: The patient ambulated 620 feet over the course of 6 minutes beginning on room air without the use of assistive devices. Pretesting oxygen saturation was noted to be 93% on room air. With ambulation, the negrito oxygen saturation was 86%. 4 L/min of pulsed dose supplemental oxygen was applied and the patient was able to complete the remainder of the test while maintaining appropriate oxygen saturations. - Recommendations Recommendations: 4 L/min of pulsed dose supplemental oxygen should be utilized with exertion.
== END ==
PROVIDERS: PCP Internal Medicine; Referring Provider Internal Medicine Critical Care Medicine; Visit Provider Internal Medicine Critical Care Medicine
DX: J96.11 Chronic respiratory failure with hypoxia (principal)
CPT/HCPCS: 94618

== ENCOUNTER → 2021-02-15 10:36 | Outpatient (CLI) | payer OTHER, SELFPAY ==
[2020-07-19 09:45] VITALS: BMI 31.4
[2020-11-01 08:58] VITALS: BMI 33.7
[2021-02-09 08:28] VITALS: BMI 34.2
--- NOTE | 2021-02-16 10:15 | PFT ---
INTRODUCTION: The patient is a 70-year-old female that presents for pulmonary function studies secondary to a diagnosis of chronic respiratory failure. Respiratory therapy reports good patient effort. Bronchodilators were used during testing. INTERPRETATION: Forced expiration spirometry demonstrates the presence of a severe large airways obstructive ventilatory defect. There was no significant response to aerosolized bronchodilators, based upon strict ATS criteria. Spirograms are of fair quality but do not plateau indicating slow emptying of the lungs. Body plethysmography was performed and reveals lung volumes to be within normal limits. Diffusing capacity by single breath CO was reduced at 49% of predicted. IMPRESSION: Irreversible severe large airways obstructive ventilatory defect with symmetric reduction in diffusing capacity.
== END ==
PROVIDERS: PCP Internal Medicine; Referring Provider Internal Medicine Critical Care Medicine; Visit Provider Internal Medicine Critical Care Medicine
DX: J96.11 Chronic respiratory failure with hypoxia (principal)
CPT/HCPCS: 94060; 94726; 94729

== ENCOUNTER → 2021-02-22 10:28 | Outpatient (CLI) | payer OTHER, SELFPAY ==
[2020-11-01 08:58] VITALS: BMI 33.7
[2021-02-22 09:44] VITALS: BMI 34.2
[2021-02-22 10:45] LABS: Absolute Lymphocyte Count 1.44 X10^3/uL (0.83-4.51); Absolute Neutrophil Count 4.2 X10^3/uL (2.0-7.7); Basophil# 0.04 X10^3/uL; Basophil% 0.6 % (0-1); Eosinophil# 0.28 X10^3/uL; Eosinophils% 4.3 % (0-5); Hemoglobin 14.5 g/dL (12.0-15.0); Lymphocyte # 1.44 X10^3/ul (4.0); Lymphocyte % 22.2 % (19-41); Mean Corpuscular Volume 97.1 fL (81-99); Monocyte# 0.51 X10^3/uL; Monocyte% 7.9 % (0-10); NRBC Flagged by Analyzer 0 % (0-5); Neutrophil # 4.19 X10^3/uL (2.7-7.7); Neutrophil % 64.5 % (47-70); Platelet Count 192 K/mm3 (150-450); RBC Distribution Width CV 11.9 % (11.6-14.6); RBC Distribution Width SD 42.6 fl (35.1-43.9); Red Blood Count 4.53 M/mm3 (4.2-5.4); White Blood Count 6.5 K/mm3 (4.4-11.0)
== END ==
PROVIDERS: PCP Internal Medicine; Referring Provider Nurse Practitioner Acute Care; Visit Provider Nurse Practitioner Acute Care
DX: J45.50 Severe persistent asthma, uncomplicated (principal)
CPT/HCPCS: 36415; 85025

== ENCOUNTER → 2021-03-08 08:31 | Outpatient (CLI) | payer OTHER, SELFPAY ==
[2020-11-01 08:58] VITALS: BMI 33.7
[2021-02-22 09:44] VITALS: BMI 34.2
--- NOTE | 2021-03-08 08:33 | CT_ITS ---
STUDY: LOW DOSE CT LUNG CANCER SCREENING REASON FOR EXAM: Female, 70 years old. Smoking and amp;gt; 40 pack years. Patient is on home oxygen. RADIATION DOSAGE (If Supplied By Facility): CTDIvol = ( 3.02 ) mGy, DLP = ( 98.92 ) mGycm TECHNIQUE: No contrast was administered. Low dose technique was utilized (average mAS-38 and kVp 120). 1.25 mm axial source images with a slice interval of 1.25-mm were reconstructed in lung windows. 2.5 mm axial source images with a slice interval of 2.5-mm were reconstructed in lung windows. 5.0 mm axial source images with a slice interval of 5.0-mm were reconstructed in soft tissue windows. Nodule measured using lung windows on PACS and/or independent workstation with automated measurement of minimum and maximum diameter. Nodule measurement reported as average diameter rounded to the nearest whole number. Growth is defined as an increase ins size of greater than 1.5 mm. COMPARISON: Comparison is made with prior study dated 12/29/2020. NODULES: Stable calcified granuloma in the lingular segment of the left upper lobe. Stable mild increased markings in the anterior medial aspect of the right middle lobe. There is evidence of the volume loss in the left upper lobe with evidence of bronchiectasis and pleural thickening. This is in keeping with evidence of scarring. This is unchanged as compared to prior study. There is evidence of hyperinflation with evidence of a mild degree of bullous changes. Endobronchial lesion: None Aorta: Atherosclerotic calcific plaque. Coronary arteries: Coronary artery calcification. Other chest and abdominal findings: Calcified splenic granulomas. CT/Low Dose CT Lung Screening IMPRESSION: Lung-RADS category 2 - Continue annual screening with LDCT in 12 months. IMPORTANT NOTES FOR USE: ACR Lung-RADS Version 1.1 Assessment Categories Release Date: 2018 Category: Coded 0-4 bases on nodule(s) with highest degree of suspicion. Negative screen is defined as categories 1 and 2; a positive screen is defined as categories 3 and 4. Category 3 and 4A nodules that are unchanged on interval CT should be coded as category 2, and individuals returned to screening in 12 months. Category 4X: Category 3 or 4 nodules with additional imaging findings that increase the suspicion of lung cancer, such as spiculation, GGN that doubles in size in 1 year, enlarged lymph notes, etc. Category Modifiers: S (significant finding unrelated to lung cancer) Electronically Signed: Aquilino Rahman MD at 15:16 EDT , Service support ,
== END ==
PROVIDERS: PCP Internal Medicine; Referring Provider Nurse Practitioner Acute Care; Visit Provider Nurse Practitioner Acute Care
DX: F17.210 Nicotine dependence, cigarettes, uncomplicated (principal); Z12.2 Encounter for screening for malignant neoplasm of respiratory organs
CPT/HCPCS: 71271

== ENCOUNTER → 2021-05-12 12:49 | Outpatient (CLI) | payer OTHER, SELFPAY ==
[2020-11-01 08:58] VITALS: BMI 33.7
[2021-04-18 09:13] VITALS: BMI 33.3
[2021-05-12 13:26] LABS: Hematocrit 44.1 % (37-47); Hemoglobin 14.7 g/dL (12.0-15.0); Mean Corp Hgb Conc 33.3 g/dL (32-36); Mean Corpuscular Hgb 32.5 pg (27.0-32.0); Mean Corpuscular Volume 97.6 fL (81-99); Mean Platelet Vol. 10.2 fl (6.2-12.0); Platelet Count 241 K/mm3 (150-450); RBC Distribution Width CV 11.9 % (11.6-14.6); RBC Distribution Width SD 43.2 fl (35.1-43.9); Red Blood Count 4.52 M/mm3 (4.2-5.4); White Blood Count 7.1 K/mm3 (4.4-11.0)
[2021-05-12 14:10] LABS: Anion Gap 4 (5-15); BUN 16 mg/dL (7-18); BUN/Creat Ratio 20.5 RATIO (10-20); Calcium,Total 9.2 mg/dL (8.5-10.1); Chloride 104 mmol/L (98-107); Creatinine, Serum 0.78 mg/dL (0.55-1.02); EST Glomerular Filtration Rate 77 mL/min (>60); Est Glom Filt Rate - Afr Amer 94 mL/min (>60); Glucose 94 mg/dL (74-106); Magnesium 2.3 mg/dL (1.6-2.6); Potassium 3.7 mmol/L (3.5-5.1); Sodium Level 141 mmol/L (136-145); T4 Total, Thyroxin 12.4 ug/dL (4.8-13.9); Thyroid Stim Hormone (TSH) 2.46 uIU/mL (0.358-3.74)
== END ==
PROVIDERS: PCP Internal Medicine; Referring Provider Internal Medicine Cardiovascular Disease; Visit Provider Internal Medicine Cardiovascular Disease
DX: I49.3 Ventricular premature depolarization (principal); R00.2 Palpitations; R53.83 Other fatigue
CPT/HCPCS: 36415; 80048; 83735; 84436; 84443; 85027

== ENCOUNTER → 2021-06-03 10:48 | Outpatient (CLI) | payer OTHER, SELFPAY ==
[2020-11-01 08:58] VITALS: BMI 33.7
[2021-05-16 09:02] VITALS: BMI 33.3
== END ==
PROVIDERS: PCP Internal Medicine; Referring Provider Internal Medicine Cardiovascular Disease; Visit Provider Internal Medicine Cardiovascular Disease
DX: I49.3 Ventricular premature depolarization (principal); R00.2 Palpitations
CPT/HCPCS: 93225; 93226

== ENCOUNTER → 2021-07-29 11:53 | Outpatient (CLI) | payer OTHER, SELFPAY ==
[2020-11-01 08:58] VITALS: BMI 33.7
== END ==
PROVIDERS: Nurse Practitioner Acute Care; PCP Internal Medicine; Referring Provider Internal Medicine Critical Care Medicine; Visit Provider Internal Medicine Critical Care Medicine
DX: U07.1 COVID-19 (principal)
CPT/HCPCS: 87635; C9803; U0005; U0003

== ENCOUNTER 2021-08-02 16:44 | Outpatient (CLI) | payer OTHER, SELFPAY ==
[2020-11-01 08:58] VITALS: BMI 33.7
[2021-08-02 16:55] VITALS: BP 172/87; PULSE 106; RESP 20; TEMP 36.8; O2SAT 98; BMI 31.8
[2021-08-02] MEDS: 0.9% Saline Lock 10 ML Syringe IV (17:04)
[2021-08-02 17:32] VITALS: BP 175/93; PULSE 103; RESP 20; TEMP 36.8; O2SAT 98
[2021-08-02 18:24] VITALS: BP 161/90; PULSE 99; RESP 18; TEMP 36.3; O2SAT 98
== END 2021-08-02 18:32 | disposition home or self-care (01) ==
LOC: ICUOUT 16:44 → MS2 16:45
PROVIDERS: PCP Internal Medicine; Referring Provider Nurse Practitioner Acute Care; Visit Provider Nurse Practitioner Acute Care
DX: Z23 Encounter for immunization (principal); U07.1 COVID-19
CPT/HCPCS: J7050; M0243; A4216; Q0244

== ENCOUNTER → 2021-09-23 09:45 | Outpatient (CLI) | payer OTHER, SELFPAY ==
[2020-11-01 08:58] VITALS: BMI 33.7
[2021-09-23 10:03] LABS: Absolute Neutrophil Count 4.4 X10^3/uL (2.0-7.7); Basophil# 0.02 X10^3/uL; Basophil% 0.3 % (0-1); Hemoglobin 14.5 g/dL (12.0-15.0); Lymphocyte % 19.6 % (19-41); Mean Corpuscular Hgb 32.5 pg (27.0-32.0); Mean Corpuscular Volume 98.7 fL (81-99); Mean Platelet Vol. 9.9 fl (6.2-12.0); Monocyte# 0.44 X10^3/uL; Monocyte% 7.2 % (0-10); NRBC Flagged by Analyzer 0 % (0-5); Neutrophil # 4.43 X10^3/uL (2.7-7.7); Neutrophil % 72.4 % (47-70); Platelet Count 209 K/mm3 (150-450); RBC Distribution Width SD 44.1 fl (35.1-43.9); Red Blood Count 4.46 M/mm3 (4.2-5.4); White Blood Count 6.1 K/mm3 (4.4-11.0)
== END ==
PROVIDERS: PCP Internal Medicine; Referring Provider Internal Medicine Critical Care Medicine; Visit Provider Internal Medicine Critical Care Medicine
DX: J45.50 Severe persistent asthma, uncomplicated (principal)
CPT/HCPCS: 36415; 85025

== ENCOUNTER → 2021-10-06 14:21 | Outpatient (CLI) | payer OTHER, SELFPAY ==
[2020-11-01 08:58] VITALS: BMI 33.7
--- NOTE | 2021-10-06 14:40 | BI_ITS ---
MAMMOGRAPHY - BILATERAL DIAGNOSTIC REASON FOR EXAM: Female, 71 years old. Status post right lumpectomy. PERTINENT HISTORY: Personal history of breast cancer. Sister with breast cancer. TECHNIQUE: Digital bilateral breast rayo (3D mammographic acquisition) in the CC and MLO projections. 2-D mediolateral oblique (MLO) and craniocaudad (CC) views of both breasts were obtained. CAD: Full Field Digital Mammography with Computer Added Detection was performed. COMPARISON: Comparison is made with prior study of 09/29/2020 and 11/08/2022. FINDINGS: Breast Composition: There are scattered areas of fibroglandular density. There are no dominant masses or suspicious calcifications. The patient is status post lumpectomy in the central portion of the right breast with postoperative scarring and postoperative changes. Surgical clips are seen in the right axillary region. No other significant abnormalities are identified. BI/DIAG MAMM W/CAD, BILAT IMPRESSION: Status post right lumpectomy with postoperative changes. One year follow-up recommended. (A) ASSESSMENT CATEGORY: BIRADS Category 2: Benign. A letter regarding these results will be sent to the patient by the facility within 30 days. Approximately 10% of breast cancers are not detected by mammography. A normal mammogram should not delay biopsy of a clinically suspicious abnormality. Electronically Signed: Aquilino Rahman MD at 15:45 EST , Service support ,
== END ==
LOC: OPBI 14:22
PROVIDERS: PCP Internal Medicine; Referring Provider Student in an Organized Health Care Education/Training Program; Visit Provider Student in an Organized Health Care Education/Training Program
DX: C50.911 Malignant neoplasm of unspecified site of right female breast (principal); Z17.0 Estrogen receptor positive status [ER+]
CPT/HCPCS: 77062; 77066; G0279

== ENCOUNTER 2022-02-03 08:41 | Outpatient (CLI) | payer OTHER, SELFPAY ==
[2020-11-01 08:58] VITALS: BMI 33.7
--- NOTE | 2022-02-03 08:54 | BI_ITS ---
MAMMOGRAPHY - UNILATERAL DIAGNOSTIC: RIGHT BREAST REASON FOR EXAM: Female, 71 years old. Recent right lumpectomy and radiation. Tenderness in the lower half of the right breast. PERTINENT HISTORY: Personal history of breast cancer. Sister with breast cancer. TECHNIQUE: Digital unilateral breast rayo (3D mammographic acquisition) in the CC and MLO projections. 2-D mediolateral oblique (MLO) and craniocaudad (CC) views of both breasts were obtained. CAD: Full Field Digital Mammography with Computer Added Detection was performed. COMPARISON: Comparison is made with prior study dated 10/06/2021. FINDINGS: Breast Composition: There are scattered areas of fibroglandular density. There are no dominant masses or suspicious calcifications. The patient is status post lumpectomy in the central portion of the right breast with resultant postoperative changes. Surgical clips are also seen in the right axillary region. No other significant abnormalities are identified. There has been no significant change since the prior study. BI/DIAG MAMM W/CAD, UNILAT IMPRESSION: Stable unilateral diagnostic mammogram. With the patient''s history of pain in the lower half of the right breast, correlation with ultrasound is recommended. ASSESSMENT CATEGORY: BIRADS Category 0: Incomplete. Need additional imaging evaluation. A letter regarding these results will be sent to the patient by the facility within 30 days. Approximately 10% of breast cancers are not detected by mammography. A normal mammogram should not delay biopsy of a clinically suspicious abnormality. Electronically Signed: Aquilino Rahman MD at 9:55 EST ,
--- NOTE | 2022-02-03 09:30 | US_ITS ---
STUDY: ULTRASOUND BREAST - RIGHT REASON FOR EXAM: Female, 71 years old. Right breast tenderness. TECHNIQUE: Axial and longitudinal images of the RIGHT breast were performed with a high resolution ultrasound transducer. # OF IMAGES: 48 COMPARISON: Comparison is made with prior mammogram done earlier in the day. Comparison is also made with prior sonogram of the right breast dated 10/06/2020. FINDINGS: RIGHT Breast: There is a 1.2 cm x 1.4 cm x 1 cm hypoechoic nodular density with posterior acoustical shadowing at the 6 o''clock position breast at 3 cm from the nipple. This corresponds to the prior area of lumpectomy. This most likely represents postoperative changes. This corresponds to the patient''s site of pain. US/Breast Limited Unilateral IMPRESSION: The pain corresponds to a 1.2 cm x 1.4 cm x 1 cm solid nodule of the decreased attenuation. This is at the biopsy site and most likely represents postoperative changes. A repeat sonogram in 4 months is recommended. ASSESSMENT CATEGORY: BIRADS Category 3: Probably Benign - Short-Interval Follow-up Suggested. A letter regarding these results will be sent to the patient by the facility within 30 days. Electronically Signed: Aquilino aRhman MD at 13:03 EST ,
== END 2022-02-03 23:59 | disposition home or self-care (01) ==
LOC: OPBI 08:42
PROVIDERS: PCP Internal Medicine; Referring Provider Nurse Practitioner Family; Visit Provider Nurse Practitioner Family
DX: R92.2 Inconclusive mammogram (principal); N63.10 Unspecified lump in the right breast, unspecified quadrant; N64.4 Mastodynia; Z85.3 Personal history of malignant neoplasm of breast; Z80.3 Family history of malignant neoplasm of breast
CPT/HCPCS: 76642; 77061; 77065; G0279

== ENCOUNTER 2022-02-09 11:18 | Outpatient (CLI) | payer OTHER, SELFPAY ==
[2020-11-01 08:58] VITALS: BMI 33.7
--- NOTE | 2022-02-08 | IMM_PTH ---
PATIENT: GAGE MEMBRENO LOC: [facility] U#:[id number] AGE/SX: 71/F ROOM: RE02/09/[address]: Dr. Tj Lucero MD : 1950 BED: DIS: 02/09/2022 SPEC #: [id number] RECD: 02/10/22 12:20 STATUS: BEVERLY REQ #: [id number] JEFFERSON: 02/08/22 00:[address]: Tj Lucero DEPT: IMMUNOHISTOCHEMISTRY RECD BY: Marie Zhang ENTERED: 02/10/22 12:20 SP TYPE: IMMUNO OTHR DR: Dr. Naima Linares MD Tissues: Right breast, NOS Procedures: CK8 (initial) MACRO (add) P53 (add) Vimentin (add) PHYSICIAN & INSTITUTION [place] [id number] SPECIMEN INFORMATION: Tissue Source: Right breast Clinical Info: Right breast lump Specimen Number: [id number] CPT code: 40486, 73489 x3 METHODOLOGY: Deparaffinized sections of prefer/formalin-fixed tissue or PAP/DQ stained slides are incubated with monoclonal/polyclonal antibodies/oligonucleotide probes. Localization is made via biotin free immunoperoxidase method. Appropriate controls are performed and reacted as expected. Results on target cell population are indicated in the following table: RESULTS: ANTIBODY / CLONE RESULT CK8 (12xpjdH58) negative Macro (HAM-56) positive Vimentin (V9) positive P53 (DO-7) negative These tests were developed and their performance characteristics determined by [facility]. They may not have been cleared or approved by the U.S. Food and Drug Administration. The FDA has determined that such clearance or approval is not necessary. The above immunohistochemical/dualISH markers are ordered and reviewed by the Pathologist. INTERPRETATION: Right breast, core biopsy: Benign breast tissue. AM:ron 02/13/2022
--- NOTE | 2022-02-08 | BRBX_PTH ---
PATIENT: GAGE MEMBRENO LOC: [facility]#:[id number] AGE/SX: 71/F ROOM: RE02/09/[address]: Dr. Tj Lucero MD : 1950 BED: DIS: 02/09/2022 SPEC #: [id number] RECD: 02/09/22 12:55 STATUS: BEVERLY REModesto #: [id number] JEFFERSON: 02/08/22 00:[address]: Tj Lucero DEPT: SURGICAL PATHOLOGY RECD BY: Igor Warren ENTERED: 02/09/22 12:55 SP TYPE: BREAST BX OTHR DR: Dr. Naima Linares MD Tissues: Right breast, NOS Procedures: Surgery Specimen Level IV HEADER OPERATION: Right breast biopsy PRE-OP DIAGNOSIS: Right breast lump TISSUE SUBMITTED: Right breast tissue MICROSCOPIC DIAGNOSIS Right breast lump, core biopsy: Fat necrosis, fibrosis and minimal chronic inflammation. No evidence of malignancy. See comment. AM:ron 02/10/2022 COMMENT Immunohistochemistry ([id number]) supports the above diagnosis. Reference is made to the patient's previous right breast core biopsy from 2019 ([id number]) in which invasive ductal carcinoma was identified. MICROSCOPIC DESCRIPTION Slides are reviewed. GROSS DESCRIPTION Received in fixative is one container labeled with the patient's name and designated right breast. The specimen consists of multiple irregular and elongated fragments of calderón tissue that in aggregate measure 2 x 0.6 x 0.1 cm. The specimen is totally submitted in one cassette. / AM:ron 02/09/2022 TC:5 CPT: 89656
== END 2022-02-09 23:59 | disposition home or self-care (01) ==
LOC: LABSPEC 11:21
PROVIDERS: PCP Internal Medicine; Visit Provider Surgery
DX: N61.1 Abscess of the breast and nipple (principal); N64.1 Fat necrosis of breast
CPT/HCPCS: 88305; 88341; 88342

== ENCOUNTER → 2022-05-11 | Outpatient (CLI) | payer OTHER, SELFPAY ==
[2020-11-01 08:58] VITALS: BMI 33.7
--- NOTE | 2022-05-11 13:15 | CT_ITS ---
STUDY: LOW DOSE CT LUNG CANCER SCREENING REASON FOR EXAM: 71-year-old female patient with 40 pack-year history of smoking., RADIATION DOSAGE (If Supplied By Facility): CTDIvol = ( 3.02 ) mGy, DLP = ( 1 a 4.2 ) mGycm TECHNIQUE: No contrast was administered. Low dose technique was utilized (average mAS-38 and kVp 120). 1.25 mm axial source images with a slice interval of 1.25-mm were reconstructed in lung windows. 2.5 mm axial source images with a slice interval of 2.5-mm were reconstructed in lung windows. 5.0 mm axial source images with a slice interval of 5.0-mm were reconstructed in soft tissue windows. COMPARISON: Comparison is made with prior study dated 03/08/2021. NODULES: No suspicious nodules are seen. Emphysema: Stable calcified granuloma in the lingular segment of the left upper lobe. Emphysematous changes. Stable volume loss in the left upper lobe with evidence of bronchiectasis and pleural thickening. This is suggestive of a chronic scarring. Stable increased markings in the medial aspect of the right middle lobe suggestive of scarring. Mild scarring along the anterior medial aspect of the lingular segment of left upper lobe as well as the right lower lung. Stable scarring in the lower lobes posteriorly. Endobronchial lesion: None Aorta: Atherosclerotic calcific plaques. CORONARY ARTERIES: Coronary artery calcification is seen. Heart: Unremarkable Pulmonary artery: Unremarkable Mediastinal nodes: Unremarkable Other chest and abdominal findings: CT/Low Dose CT Lung Screening IMPRESSION: Lung-RADS category 2 - Continue annual screening with LDCT in 12 months. IMPORTANT NOTES FOR USE: ACR Lung-RADS Version 1.1 Assessment Categories Release Date: 2018 Category: Coded 0-4 bases on nodule(s) with highest degree of suspicion. Negative screen is defined as categories 1 and 2; a positive screen is defined as categories 3 and 4. Category 3 and 4A nodules that are unchanged on interval CT should be coded as category 2, and individuals returned to screening in 12 months. Category 4X: Category 3 or 4 nodules with additional imaging findings that increase the suspicion of lung cancer, such as spiculation, GGN that doubles in size in 1 year, enlarged lymph notes, etc. Category Modifiers: S (significant finding unrelated to lung cancer) Electronically Signed: Aquilino Rahman MD at 14:21 EDT ,
== END | disposition home or self-care (01) ==
PROVIDERS: PCP Internal Medicine; Referring Provider Nurse Practitioner Acute Care; Visit Provider Nurse Practitioner Acute Care
DX: F17.210 Nicotine dependence, cigarettes, uncomplicated (principal)
CPT/HCPCS: 71271

== ENCOUNTER → 2022-10-12 | Outpatient (CLI) | payer OTHER, SELFPAY ==
[2020-11-01 08:58] VITALS: BMI 33.7
--- NOTE | 2022-10-12 10:30 | BI_ITS ---
MAMMOGRAPHY - BILATERAL SCREENING REASON FOR EXAM: Female, 72 years old. Routine annual screening examination. PERTINENT HISTORY: Personal history of breast cancer. Prior right lumpectomy and radiation treatment. Sister with breast cancer. TECHNIQUE: Digital bilateral breast shailesh (3D mammographic acquisition) in the CC and MLO projections. 2-D mediolateral oblique (MLO) and craniocaudad (CC) views of both breasts were obtained. CAD: Full Field Digital Mammography with Computer Added Detection was performed. COMPARISON: Comparison is made with prior study of 02/03/2022 and 10/06/2021. FINDINGS: Breast Composition: There are scattered areas of fibroglandular density. There are no dominant masses or suspicious calcifications. Once again, the patient is status post lumpectomy in the central portion of the right breast with resultant postoperative scarring. Surgical clips are seen in the right axillary region. No other significant abnormalities are identified. There has been no significant change since the prior study. BI/SCRN MAMM (CAD)W/SHAILESH BILAT IMPRESSION: Stable bilateral screening mammogram. Yearly follow-up mammogram recommended. (A) ASSESSMENT CATEGORY: BIRADS Category 2: Benign. A letter regarding these results will be sent to the patient by the facility within 30 days. Approximately 10% of breast cancers are not detected by mammography. A normal mammogram should not delay biopsy of a clinically suspicious abnormality. [id number] Electronically Signed: Aquilino Rahman MD at 12:42 EST ,
--- NOTE | 2022-10-12 10:34 | BD_ITS ---
STUDY: DUAL ENERGY X-RAY ABSORPTIOMETRY / DXA REASON FOR EXAM: Female, 72 years old. Screening TECHNIQUE: Bone Mineral Density (BMD) measurements of lumbar spine and bilateral hips were obtained. COMPARISON: Comparison is made with prior study of 09/29/2020. FINDINGS: Lumbar Spine (L1-L4): g/cm2 (0.964) / T-score (-0.8) / Z-score (1.5) Findings are suggestive of normal bone density with a low fracture risk. Left Femur Total: g/cm2 (0.744) / T-score (-1.6) / Z-score (0.1) Left Femoral Neck: g/cm2 (0.499) / T-score (-3.2) / Z-score (-1.2) Right Femur Total: g/cm2 (0.530) / T-score (-2.9) / Z-score (-0.9) Right Femoral Neck: g/cm2 (0.737) / T-score (-1.7) / Z-score (0.0) The T-Scores on the most recent prior examination were: Lumbar Spine (L1-L4): There has been improvement of bone density since the previous examination. Left Femur Total: which represents an improvement of 6.2%. Right Femur Total: which represents an improvement of 5.7%. BD/Dexa Bone Density Study IMPRESSION: The patient is considered osteoporotic as outlined below according to World Simón Organization (WHO) criteria with a high fracture risk. There has been improvement of bone density since the previous examination. Reference Information: The T-score is the number of standard deviations above or below the standard which is normal for young adults at their peak bone mineral density. The World Health Organization (WHO) interprets the T-scores as follows: Above -1 Normal bone density Between -1 and -2.5 Osteopenia Equal to / or below -2.5 Osteoporosis As a practical clinical guideline, osteopenia may be graded as follows: Mild -1 through -1.5 Moderate -1.6 through -2.0 Severe -2.1 through -2.4 The Z-score is the number of standard deviations above or below age-matched controls. A Z-score of less than -1.5 would be considered abnormal. References: 1. NIH Osteoporosis and Related Bone Diseases www osteo.org 2. International Society for Clinical Densitometry www iscd.org 3. National Osteoporosis Foundation www nof.org Electronically Signed: Aquilino Rahman MD at 13:14 EST ,
== END | disposition home or self-care (01) ==
LOC: OPBD 10:28
PROVIDERS: PCP Internal Medicine; Visit Provider Nurse Practitioner Family
DX: Z12.31 Encounter for screening mammogram for malignant neoplasm of breast (principal); M81.0 Age-related osteoporosis without current pathological fracture; Z80.3 Family history of malignant neoplasm of breast
CPT/HCPCS: 77063; 77067; 77080

== ENCOUNTER → 2023-05-12 | Outpatient (CLI) | payer OTHER, SELFPAY ==
[2020-11-01 08:58] VITALS: BMI 33.7
[2023-01-08 11:45] VITALS: BMI 33.7
--- NOTE | 2023-05-12 09:38 | CT_ITS ---
STUDY: LOW DOSE CT LUNG CANCER SCREENING REASON FOR EXAM: Female, 72 years old. Smoker. Greater than 40 pack-year history. RADIATION DOSAGE (If Supplied By Facility): CTDIvol = ( 3.02 ) mGy, DLP = ( 109.85 ) mGycm TECHNIQUE: No contrast was administered. Low dose technique was utilized (average mAS-38 and kVp 120). 1.25 mm axial source images with a slice interval of 1.25-mm were reconstructed in lung windows. 2.5 mm axial source images with a slice interval of 2.5-mm were reconstructed in lung windows. 5.0 mm axial source images with a slice interval of 5.0-mm were reconstructed in soft tissue windows. COMPARISON: 01/11/2022. NODULES: Total lung nodules (excluding granulomas): 0 Calcified granulomata are again seen in the lingula and right perihilar region. Emphysema: Diffuse emphysematous changes with stable scarring and volume loss in the left upper lobe. Endobronchial lesion: None Aorta: Atherosclerotic changes without aneurysm. CORONARY ARTERIES: Coronary artery calcification are present Heart: Normal Pulmonary artery: Normal Mediastinal nodes: Right hilar calcified lymph nodes. Other chest and abdominal findings: Degenerative changes of the thoracic spine. CT/Low Dose CT Lung Screening IMPRESSION: Lung-RADS category 1 - Continue annual screening with LDCT in 12 months. IMPORTANT NOTES FOR USE: ACR Lung-RADS Version 1.1 Assessment Categories Release Date: 2018 Category: Coded 0-4 bases on nodule(s) with highest degree of suspicion. Negative screen is defined as categories 1 and 2; a positive screen is defined as categories 3 and 4. Category 3 and 4A nodules that are unchanged on interval CT should be coded as category 2, and individuals returned to screening in 12 months. Category 4X: Category 3 or 4 nodules with additional imaging findings that increase the suspicion of lung cancer, such as spiculation, GGN that doubles in size in 1 year, enlarged lymph notes, etc. Category Modifiers: S (significant finding unrelated to lung cancer) Electronically Signed: Ciro Akers DO at 20:12 EDT Reading Location ID and State: [facility] / [place] Tel [phone], Service support ,
== END | disposition home or self-care (01) ==
LOC: CT 09:37
PROVIDERS: PCP Internal Medicine; Referring Provider Nurse Practitioner Acute Care; Visit Provider Nurse Practitioner Acute Care
DX: F17.210 Nicotine dependence, cigarettes, uncomplicated (principal)
CPT/HCPCS: 71271

== ENCOUNTER → 2023-07-11 | Outpatient (CLI) | payer OTHER, SELFPAY ==
[2023-01-08 11:45] VITALS: BMI 33.7
== END | disposition home or self-care (01) ==
LOC: SL 11:07
PROVIDERS: PCP Internal Medicine; Visit Provider Nurse Practitioner Acute Care
DX: Z00.00 Encounter for general adult medical examination without abnormal findings (principal)

== ENCOUNTER 2023-10-02 08:27 | Day surgery (SDC) | payer OTHER, SELFPAY ==
[2023-01-08 11:45] VITALS: BMI 33.7
--- NOTE | 2023-10-02 | IMM_PTH ---
PATIENT: GAGE MEMBRENO LOC: EN U#:[id number] AGE/SX: 73/F ROOM: RE10/02/[address]: Dr. Tj Lucero MD : 1950 BED: DIS: 10/02/2023 SPEC #: [id number] RECD: 10/03/23 12:55 STATUS: BEVERLY REModesto #: [id number] JEFFERSON: 10/02/23 00:[address]: Tj Lucero DEPT: IMMUNOHISTOCHEMISTRY RECD BY: Giuliana Hairston ENTERED: 10/03/23 12:56 SP TYPE: IMMUNO OTHR DR: Dr. Naima Linares MD Tissues: Gastric mucous membrane Procedures: H Pylori (initial) PHYSICIAN & INSTITUTION [place] [id number] SPECIMEN INFORMATION: Tissue Source: Antrum Clinical Info: Colonoscopy, EGD with biopsies Specimen Number: [id number] CPT code: 85838 METHODOLOGY: Deparaffinized sections of prefer/formalin-fixed tissue or PAP/DQ stained slides are incubated with monoclonal/polyclonal antibodies/oligonucleotide probes. Localization is made via biotin free immunoperoxidase method. Appropriate controls are performed and reacted as expected. Results on target cell population are indicated in the following table: RESULTS: ANTIBODY / CLONE RESULT H Pylori (polyclonal) negative These tests were developed and their performance characteristics determined by [facility]. They may not have been cleared or approved by the U.S. Food and Drug Administration. The FDA has determined that such clearance or approval is not necessary. The above immunohistochemical/dualISH markers are ordered and reviewed by the Pathologist. INTERPRETATION: Antrum, biopsy: Negative for Helicobacter pylori organisms.
[2023-10-02 08:53] VITALS: BP 157/68; PULSE 98; RESP 18; TEMP 36.6; O2SAT 99; BMI 28.9
[2023-10-02] MEDS: Lactated Ringers 1,000 ML 15 ML IV (08:56)
--- NOTE | 2023-10-02 09:23 | HP.PCM_ITS ---
History and Physical Date of Admission: 10/02/23 Visit Reasons: POSITIVE COLOGUARD Chief Complaint: Positive cologuard Cigarette Inspector Required: No Is patient in pain?: No Allergies doxycycline Allergy (Verified 07/23/23 12:54) Diarrheaperflutren [From Definity] Adverse Reaction (Severe, Verified 07/23/23 12:54) Light headednessciprofloxacin [From Cipro] Adverse Reaction (Intermediate, Verified 07/23/23 12:54) irregular heart beatsSulfa (Sulfonamide Antibiotics) Adverse Reaction (Intermediate, Verified 07/23/23 12:54) Rash Medications loratadine 10 mg tablet (Claritin) 10 mg PO QDAY allergies 02/04/18 [History Confirmed 07/05/23] magnesium oxide 400 mg (241.3 mg magnesium) tablet 400 mg PO QDAY Cramp 02/04/18 [History Confirmed 07/05/23] omega-3 fatty acids 1,000 mg capsule (Fish Oil Concentrate) 1,000 mg PO BID supplement 08/19/20 [History Confirmed 07/05/23] calcium carbonate 600 mg calcium (1,500 mg) tablet 600 mg PO BID supplement 11/02/20 [History Confirmed 07/05/23] fluticasone propionate 50 mcg/actuation nasal spray,suspension 1 spray NASAL DAILY allergies 11/02/20 [History Confirmed 07/05/23] benralizumab 30 mg/mL subcutaneous syringe (Fasenra) 30 mg subcut Q8W 06/08/21 [History Confirmed 07/05/23] multivitamin 1 tab PO DAILY 08/02/21 [History Confirmed 07/05/23] bupropion HCl 150 mg 24 hr tablet, extended release 150 mg PO QAM 12/19/21 [History Confirmed 07/05/23] albuterol sulfate 2.5 mg/3 mL (0.083 %) solution for nebulization 2.5 mg (3 mL) inhalation Q4H PRN Sob &/Or Wheezing #180 mL 12/08/22 [Rx Confirmed 07/05/23] azelastine 137 mcg (0.1 %) nasal spray aerosol 1 spray intranasal BID breathing #30 mL 12/15/22 [Rx Confirmed 07/05/23] anastrozole 1 mg tablet 1 mg PO DAILY 90 days #90 tabs 01/08/23 [Rx Confirmed 07/05/23] montelukast 10 mg tablet 10 mg PO QHS allergies #90 tabs 01/17/23 [Rx Confirmed 07/05/23] albuterol sulfate 90 mcg/actuation aerosol inhaler 2 puff inhalation Q4H PRN PRN Sob &/Or Wheezing #18 grams 02/05/23 [Rx Confirmed 07/05/23] budesonide 160 mcg-glycopyr 9 mcg-formot 4.8 mcg/actuation HFA inhaler (Breztri Aerosphere) 2 inh inhalation BID #10.7 grams 02/05/23 [Rx Confirmed 07/05/23] diltiazem HCl 180 mg capsule,extended release 24 hr 180 mg PO BID #180 caps 04/25/23 [Rx Confirmed 07/05/23] ipratropium 0.5 mg-albuterol 3 mg (2.5 mg base)/3 mL nebulization soln 3 ml inhalation Q4H PRN PRN SOB &/OR WHEEZING #180 mL 07/06/23 [Rx] PFS Medical History (Updated 07/23/23 @ 12:44 by Lucie Zhou) Asthma with COPD with exacerbation Breast cancer, right Bronchiectasis Chronic hypoxemic respiratory failure COPD with acute exacerbation Decreased libido Essential hypertension History of breast cancer History of right breast cancer (~10/2020) Hyperlipidemia Hypersomnia Obesity PAUL treated with BiPAP Pneumonia Positive colorectal cancer screening using Cologuard test Screening for breast cancer Secondary pulmonary arterial hypertension Severe persistent asthma Stage 3 severe COPD by GOLD classification Vertigo Surgical History History of cataract extraction with lens replacement History of colonoscopy (~2014) History of lumpectomy of right breast (~10/2020) History of lymph node biopsy (~10/2020) History of right breast biopsy (~09/2020) History of wisdom tooth extraction Family History Mother Lung cancer DiabetesFather Liver cancerSister Colon cancerSister Breast cancer Social History Smoking Status: Former smoker Tobacco: How many years used: 40 second hand exposure: No alcohol intake: current alcohol intake frequency: 0-2 drinks per day Alcohol type: wine substance use type: does not use caffeine: Yes (3/day) what type of physical activity do you participate in: none kasey/moravian: seatbelt use: always do you feel safe at home: Yes HPI HPI HPI: 72-year-old female was referred by Dr. Naima Linares for surgical consultation because of a positive Cologuard and a written copy my surgical consult recommendations will return to him. Among the patient's other medications she is on fish oil. She has a personal history of breast cancer and had breast conservation surgery. She is dependent upon oxygen at night at 3 L. History of COPD. She has had a previous history of a tubular adenoma of the colon. Also has known diverticulosis. Her most recent colonoscopy was September 2011 with a hyperplastic polyp removed.. The Cologuard was collected on June 28, 2023. As of January 06, 2023 white blood cell count was 5.4 with a Humoryl 14.4 hematocrit 42.4 platelet count 196,000. BUN 15 creatinine 0.69. Hemoglobin A1c was 5. 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 Pathologic stage T2 N0 MX She has no family history of colon cancer of which she is aware. Dr. Darnell Aranda is her board certified music therapist. The patient can vary anywhere between 2 to 4 L/min of oxygen requirement. She has no abdominal pain. She has not had any unexpected weight loss. She has not any bright red blood per rectum or melena ROS General General: Yes breast cancer; No weight change, appetite, fatigue, colon cancer or weakness HEENT HEENT: No difficulty swallowing, eye injury, eye surgery, swollen glands or hoarseness Endo Endocrine: No thyroid disease, diabetes mellitus, thyroid cancer, Hair loss, heat intolerance or cold intolerance Skin Skin: No rash or changing moles Breast Breast: No left breast lump, right breast lump, nipple discharge, breast pain, abnormal mammogram, abnormal US or breast enlargement Musc Musculoskeletal: Yes arthritis; No back problems, rheumatoid arthritis, gout or joint pain Cardio Cardiovascular: Yes high blood pressure; No murmur, pacemaker, heart disease, atrial fibrillation, heart attack, heart stent, palpitations, shortness of breat with exertion or chest pain Psych Psychiatric: Yes depression and anxiety; No hearing voices Resp Respiratory: Yes shortness of breath, Yes sleep apnea, No cough, Yes COPD, Yes asthma, Yes emphysema and No wheezing Additional Details: Wears oxygen at 1-2 liters sitting and 4 liters with activities Gastro Gastrointestinal: No abdominal pain, No nausea or vomiting, No diarrhea, Yes constipation, No blood in stool, No acid reflux, Yes hemorrhoids, No ulcers, No gallbladder problem and No black,tarry stools [place] Hematologic: No blood thinners, No blood disorders, No bleeding, No anemia and No blood clots Neuro Neurologic: No system reviewed and no additional complaints, except as do cumented, No as per HPI, No abnormal gait, No abnormal hearing, No abnormal movements, No abnormal speech, No behavioral changes, No burning sensations, No confusion, No convulsions, No disequilibrium, No dizziness, No localized weakness, No frequent falls, No headache(s), No lack of coordination, No loss of vision, No memory loss, Yes numbness, No other visual disturbances, No radicular pain, No restless legs, No sensory deficit, No syncope, Yes tingling, No tremor(s), No weakness and No other Exam Const General: cooperative and comfortable Nutritional Appearance: obese Other: The patient is able to get on the exam table. When lying her supine she became notably more short of breath despite the supplemental oxygen. [facility] Head: normal to inspection Eyes General: appearance normal, both eyes and all related structures Neck Neck: normal visual inspection Chest Other: Increased anterior posterior diameter Resp Other: Poor respiratory excursion with some dried basilar rales Cardio Other: Irregular GI Palpation: soft Auscultation: normal bowel sounds Other: Overweight Musc Cervical Spine: normal cervical lordosis Skin General: no rashes or lesions noted Neuro General: patient alert, patient awake and patient oriented x3 Extrem General: no calf tenderness Psych Appearance: grossly normal Assessment and Plan Assessment and Plan (1) Positive colorectal cancer screening using Cologuard test: Status: Acute Plan: I have offered the patient a combined esophagogastroduodenoscopy with possible biopsy and colonoscopy possible biopsy or polypectomy as indicated. She is aware of the technique, benefit, risk, alternatives. She is on routine oxygen and requires it. We will need to have her hold her fish oil. We will need to use monitored anesthesia care. She is aware of the increased risk due to her chronic pulmonary disease. She has had an opportunity to ask and have questions answered. We will schedule and try to expedite her care as timing permits. I appreciate the ongoing option of assisting with her surgical care. Copy: Dr. Naima Lucero M.D., F.A.C.S. I have examined the patient and the H&P has been reviewed. There are no clinical changes since date of exam. Tj Lucero M.D., F.A.C.S.
--- NOTE | 2023-10-02 09:45 | EGD_PTH ---
PATIENT: GAGE MEMBRENO LOC: EN U#:[id number] AGE/SX: 73/F ROOM: RE10/02/[address]: Dr. Tj Lucero MD : 1950 BED: DIS: 10/02/2023 SPEC #: [id number] RECD: 10/02/23 14:00 STATUS: BEVERLY [place] #: [id number] JEFFERSON: 10/02/23 09:[address]: Tj Lucero DEPT: SURGICAL PATHOLOGY RECD BY: Giuliana Hairston ENTERED: 10/03/23 10:22 SP TYPE: EGD BIOPSY OT DR: Dr. Naima Linares MD Tissues: A - Duodenum, NOS B - Gastric mucous membrane C - Esophagus, NOS D - Esophagus, NOS Procedures: Surgery Specimen Level IV HEADER OPERATION: Colonoscopy, EGD with biopsies PRE-OP DIAGNOSIS: Positive colorectal cancer screening TISSUE SUBMITTED: A. Duodenum, B. Antrum, C. Greater curvature polyp, D. Distal esophagus MICROSCOPIC DIAGNOSIS A. Duodenum, biopsy: A fragment of duodenal mucosa, no pathologic diagnosis. B. Antrum, biopsy: Mild gastritis. See microscopic description and comment. C. Greater curvature polyp, biopsy: Fundic gland polyp. D. Distal esophagus, biopsy: A fragment of gastroesophageal mucosa with chronic inflammation. Intestinal metaplasia (goblet cell metaplasia) not identified. SJ: 10/04/2023 COMMENT B. The results of immunohistochemistry for Helicobacter pylori will be reported separately ([id number]). D. Alcian blue/PAS stain with matched control is used in the evaluation of the specimen. The specimen predominantly consists of squamous mucosa. Minute fragment of gastric mucosa is noted in the alcian blue /PAS stained slide. MICROSCOPIC DESCRIPTION Slides are reviewed. The specimen shows fragments of gastric mucosa with chronic inflammatory cell infiltrates in the lamina propria consisting of lymphocytes and plasma cells, consistent with mild chronic gastritis. GROSS DESCRIPTION A. Received is one container labeled with the patient name and designated duodenum. The specimen consists of one irregular fragment of light calderón soft tissue that measures 0.3 x 0.3 x 0.1 cm. The specimen is totally submitted in one cassette. B. Received is one container labeled with the patient name and designated antrum. The specimen consists of one irregular fragment of light calderón soft tissue that measures 03 x 0.3 x 0.1 cm. The specimen is totally submitted in one cassette. C. Received is one container labeled with the patient name and designated greater curvature polyp. The specimen consists of one irregular fragment of light calderón soft tissue that measures 0.3 x 0.3 x 0.1 cm. The specimen is totally submitted in one cassette. D. Received is one container labeled with the patient name and designated distal esophagus. The specimen consists of one irregular fragment of light calderón soft tissue that measures 0.4 x 0.4 x 0.1 cm. The specimen is totally submitted in one cassette. /SJ:cc 10/03/23 TC:3 CPT: 23595 x4, 82019
[2023-10-02 10:48] VITALS: BP 157/68; BP 94/65; PULSE 85; RESP 16; TEMP 36.6; O2SAT 92
--- NOTE | 2023-10-02 10:49 | OP.CCLET_ITS ---
10/02/2023 Naima Linares Re : Upper GI endoscopy procedure for Bernadine Medina Dear Milagros This procedure was performed on Monday, October 02, 2023. My impressions and recommendations are as follows: Impressions : - Reflux esophagitis with no bleeding. Biopsied. - Small hiatal hernia. - A few gastric polyps. Resected and retrieved. - Erythematous mucosa in the antrum. Biopsied. - Normal examined duodenum. Biopsied. Recommendations : - Discharge patient to home. - Resume previous diet. - Continue present medications. - Telephone my office for pathology results in 1 week. Gastritis might have been source of positive Cologuard. Overall findings were mild. My findings are described in the full procedure note, which is enclosed. If I can be of further assistance, please feel free to contact me at Doctor phone number(s): Work: . Sincerely, Tj Lucero MD 10/02/2023 10:48:47 AM This report has been signed electronically.
--- NOTE | 2023-10-02 10:49 | OP.EGD_ITS ---
Patient Name: Bernadine Medina Procedure Date: 10/02/2023 10:07 AM Date of : 1950 Age: 73 Procedure: Upper GI endoscopy Indications: Cologuard positive Providers: Tj Lucero MD Medicines: See the Anesthesia note for documentation of the administered medications Complications: No immediate complications. Procedure: Pre-Anesthesia Assessment: - Prior to the procedure, a History and Physical was performed, and patient medications and allergies were reviewed. The patient's tolerance of previous anesthesia was also reviewed. The risks and benefits of the procedure and the sedation options and risks were discussed with the patient. All questions were answered, and informed consent was obtained. Prior Anticoagulants: The patient has taken no anticoagulant or antiplatelet agents. ASA Grade Assessment: III - A patient with severe systemic disease. After reviewing the risks and benefits, the patient was deemed in satisfactory condition to undergo the procedure. After obtaining informed consent, the endoscope was passed under direct vision. Throughout the procedure, the patient's blood pressure, pulse, and oxygen saturations were monitored continuously. The Colonoscope was introduced through the mouth, and advanced to the second part of duodenum. The upper GI endoscopy was accomplished without difficulty. The patient tolerated the procedure well. Scope In: 10:17:05 AM Scope Out: 10:25:06 AM Total Procedure Duration Time 0 hours 8 minutes 1 second Findings: Esophagitis with no bleeding was found 40 cm from the incisors. Biopsies were taken with a cold forceps for histology. A small hiatal hernia was present. A few sessile polyps with no bleeding and no stigmata of recent bleeding were found on the greater curvature of the stomach. The polyp was removed with a cold biopsy forceps. Resection and retrieval were complete. Diffuse mildly erythematous mucosa without bleeding was found in the gastric antrum. Biopsies were taken with a cold forceps for histology. The examined duodenum was normal. Biopsies were taken with a cold forceps for histology. Impression: - Reflux esophagitis with no bleeding. Biopsied. - Small hiatal hernia. - A few gastric polyps. Resected and retrieved. - Erythematous mucosa in the antrum. Biopsied. - Normal examined duodenum. Biopsied. Recommendation: - Discharge patient to home. - Resume previous diet. - Continue present medications. - Telephone my office for pathology results in 1 week. Gastritis might have been source of positive Cologuard. Overall findings were mild. Procedure Code(s): --- Professional --- 22952, Esophagogastroduodenoscopy, flexible, transoral; with biopsy, single or multiple Diagnosis Code(s): --- Professional --- K21.00, Gastro-esophageal reflux disease with esophagitis, without bleeding K44.9, Diaphragmatic hernia without obstruction or gangrene K31.7, Polyp of stomach and duodenum K31.89, Other diseases of stomach and duodenum CPT copyright 2021 [employer]. All rights reserved. The codes documented in this report are preliminary and upon circuit walker review may be revised to meet current compliance requirements. Tj Lucero MD 10/02/2023 10:48:47 AM This report has been signed electronically. Number of Addenda: 0 Note Initiated On: 10/02/2023 10:07 AM
--- NOTE | 2023-10-02 10:51 | OP.COLON_ITS ---
Patient Name: Bernadine Medina Procedure Date: 10/02/2023 10:25 AM Date of : 1950 Age: 73 Procedure: Colonoscopy Indications: Cologuard positive Providers: Tj Lucero MD Medicines: See the Anesthesia note for documentation of the administered medications Patient Profile: Last Colonoscopy: September 2011. Complications: No immediate complications. Procedure: Pre-Anesthesia Assessment: - Prior to the procedure, a History and Physical was performed, and patient medications and allergies were reviewed. The patient's tolerance of previous anesthesia was also reviewed. The risks and benefits of the procedure and the sedation options and risks were discussed with the patient. All questions were answered, and informed consent was obtained. Prior Anticoagulants: The patient has taken no anticoagulant or antiplatelet agents. ASA Grade Assessment: III - A patient with severe systemic disease. After reviewing the risks and benefits, the patient was deemed in satisfactory condition to undergo the procedure. After I obtained informed consent, the scope was passed under direct vision. Throughout the procedure, the patient's blood pressure, pulse, and oxygen saturations were monitored continuously. The Colonoscope was introduced through the anus and advanced to the cecum, identified by appendiceal orifice and ileocecal valve. The colonoscopy was somewhat difficult due to multiple diverticula in the colon. The patient tolerated the procedure well. The quality of the bowel preparation was fair. The ileocecal valve and the appendiceal orifice were photographed. Scope In: 10:26:50 AM Scope Withdrawal Time 0 hours 7 minutes 9 seconds Scope Out: 10:42:25 AM Total Procedure Duration Time 0 hours 15 minutes 35 seconds Findings: Hemorrhoids were found on perianal exam. Multiple diverticula were found in the entire colon. The exam was otherwise without abnormality. Impression: - Preparation of the colon was fair. - Hemorrhoids found on perianal exam. - Diverticulosis in the entire examined colon. - The examination was otherwise normal. - No specimens collected. Recommendation: - Discharge patient to home. - Resume previous diet. - Continue present medications. - Repeat colonoscopy is not recommended due to current age (66 years or older) for screening purposes No acute findings to correlate with positive Cologuard other than presence of internal hemorrhoids.. Procedure Code(s): --- Professional --- 55503, Colonoscopy, flexible; diagnostic, including collection of specimen(s) by brushing or washing, when performed (separate procedure) Diagnosis Code(s): --- Professional --- K64.9, Unspecified hemorrhoids K57.30, Diverticulosis of large intestine without perforation or abscess without bleeding CPT copyright 2021 [employer]. All rights reserved. The codes documented in this report are preliminary and upon dish carrier review may be revised to meet current compliance requirements. Tj Lucero MD 10/02/2023 10:51:28 AM This report has been signed electronically. Number of Addenda: 0 Note Initiated On: 10/02/2023 10:25 AM
--- NOTE | 2023-10-02 10:52 | OP.CCLET_ITS ---
10/02/2023 Naima Linares Re : Colonoscopy procedure for Bernadine Medina Dear Milagros This procedure was performed on Monday, October 02, 2023. My impressions and recommendations are as follows: Impressions : - Preparation of the colon was fair. - Hemorrhoids found on perianal exam. - Diverticulosis in the entire examined colon. - The examination was otherwise normal. - No specimens collected. Recommendations : - Discharge patient to home. - Resume previous diet. - Continue present medications. - Repeat colonoscopy is not recommended due to current age (66 years or older) for screening purposes No acute findings to correlate with positive Cologuard other than presence of internal hemorrhoids.. My findings are described in the full procedure note, which is enclosed. If I can be of further assistance, please feel free to contact me at Doctor phone number(s): Work: . Sincerely, Tj Lucero MD 10/02/2023 10:51:28 AM This report has been signed electronically.
[2023-10-02 10:55] VITALS: BP 112/76; BP 157/68; PULSE 88; RESP 16; O2SAT 94
[2023-10-02 11:00] VITALS: BP 121/49; BP 157/68; PULSE 86; RESP 16; O2SAT 94
[2023-10-02 11:05] VITALS: BP 119/53; BP 157/68; PULSE 86; RESP 16; TEMP 36.3; O2SAT 97
== END 2023-10-02 11:28 | disposition home or self-care (01) ==
LOC: EN 08:28 → AC 08:29
PROVIDERS: PCP Internal Medicine; Referring Provider Internal Medicine; Visit Provider Surgery
PROC: 0DJD8ZZ Inspection of Lower Intestinal Tract, Via Natural or Artificial Opening Endoscopic (ICD-10-PCS; CPT 45378; principal; 2023-10-02 09:40)
DX: K29.70 Gastritis, unspecified, without bleeding (principal); J44.9 Chronic obstructive pulmonary disease, unspecified; K44.9 Diaphragmatic hernia without obstruction or gangrene; K64.4 Residual hemorrhoidal skin tags; Z99.81 Dependence on supplemental oxygen; I10 Essential (primary) hypertension; Z87.891 Personal history of nicotine dependence; E78.5 Hyperlipidemia, unspecified; K21.00 Gastro-esophageal reflux disease with esophagitis, without bleeding; K57.30 Diverticulosis of large intestine without perforation or abscess without bleeding; K31.7 Polyp of stomach and duodenum; Z87.19 Personal history of other diseases of the digestive system; Z79.899 Other long term (current) drug therapy
CPT/HCPCS: 43239; 45378; 88305; 88342; J7120; J2405

== ENCOUNTER → 2023-10-17 | Outpatient (CLI) | payer OTHER, SELFPAY ==
[2023-01-08 11:45] VITALS: BMI 33.7
--- NOTE | 2023-10-17 09:36 | BI_ITS ---
MAMMOGRAPHY - BILATERAL SCREENING REASON FOR EXAM: Female, 73 years old. Routine annual screening examination. PERTINENT HISTORY: Personal history of breast cancer. Prior right lumpectomy and radiation treatment. Sister with breast cancer. TECHNIQUE: Digital bilateral breast shailesh (3D mammographic acquisition) in the CC and MLO projections. 2-D mediolateral oblique (MLO) and craniocaudad (CC) views of both breasts were obtained. CAD: Full Field Digital Mammography with Computer Added Detection was performed. COMPARISON: Comparison is made with prior study dated October 12, 2022 and October 06, 2021. FINDINGS: Breast Composition: There are scattered areas of fibroglandular density. There are no dominant masses or suspicious calcifications. Once again, the patient status post lumpectomy in the central portion of the right breast with resultant postoperative scarring. Surgical clip is also seen in the right axilla. No other significant abnormalities are identified. There has been no significant change since the prior study. BI/SCRN MAMM (CAD)W/SHAILESH BILAT IMPRESSION: Stable bilateral screening mammogram. Yearly follow-up mammogram recommended. (A) ASSESSMENT CATEGORY: BIRADS Category 2: Benign. A letter regarding these results will be sent to the patient by the facility within 30 days. Approximately 10% of breast cancers are not detected by mammography. A normal mammogram should not delay biopsy of a clinically suspicious abnormality. [id number] Electronically Signed: Aquilino Rahman MD at 14:35 EST ,
== END | disposition home or self-care (01) ==
LOC: OPBI 09:34
PROVIDERS: PCP Internal Medicine; Referring Provider Internal Medicine Hematology & Oncology; Visit Provider Internal Medicine Hematology & Oncology
DX: Z12.31 Encounter for screening mammogram for malignant neoplasm of breast (principal); Z80.3 Family history of malignant neoplasm of breast; Z85.3 Personal history of malignant neoplasm of breast
CPT/HCPCS: 77063; 77067

== ENCOUNTER → 2024-07-11 | Outpatient (CLI) | payer OTHER, SELFPAY ==
[2023-01-08 11:45] VITALS: BMI 33.7
--- NOTE | 2024-07-11 12:37 | CT_ITS ---
EXAM: CT CHEST, LUNG CANCER SCREENING WITHOUT INTRAVENOUS CONTRAST CLINICAL INDICATION: SMOKING greater than 46 pack years. TECHNIQUE: Helically acquired images were obtained of the chest without intravenous contrast using low dose (LDCT) lung cancer screening protocol. This CT exam was performed using one or more of the following dose reduction techniques: automated exposure control, adjustment of the mA and/or kV according to patient size, and/or use of iterative reconstruction technique. COMPARISON: 05/12/2023. 05/11/2022. 03/08/2021. FINDINGS: LUNGS AND PLEURAL SPACES: Granuloma in the lingula. Alveolar opacities in the right upper lobe with tree-in-bud nodularity. Minimal peripheral alveolar opacities in the right lower lobe are also identified. Diffuse centrilobular emphysema. Left upper lobe scarring with traction bronchiectasis and mild interstitial thickening. This is similar to the prior examination. No pleural effusion or thickening. No pneumothorax. No discrete noncalcified pulmonary nodules are otherwise identified. HEART: Coronary artery calcifications. Heart size is normal. No pericardial effusion. MEDIASTINUM: No significant abnormality. No mediastinal or hilar adenopathy. Esophagus is unremarkable. No hiatal hernia. THYROID: No significant abnormality. No thyroid lesions. BONES/JOINTS: Degenerative changes in the spine and shoulders. No suspicious lytic or blastic abnormality. VASCULATURE: Atherosclerosis of the aorta. LYMPH NODES: No significant abnormality. No enlarged lymph nodes. SPLEEN: Splenic granulomas. The spleen is otherwise normal. CT/Low Dose CT Lung Screening IMPRESSION: 1. ACR Lung CT Screening Reporting And Data System (Lung-RADS) score: 1S - Additional clinically significant or potentially clinically significant findings are described. Recommend continued annual screening with a low-dose CT (LDCT) in 12 months. 2. Scattered minimal alveolar opacities may be indicative of a pneumonitis/developing pneumonia. 3. Centrilobular emphysema. Scarring and bronchiectasis in the left upper lobe. Electronically Signed: Ovidio Guillermo DO at 12:51 EDT ,
--- NOTE | 2024-07-11 12:38 | US_ITS ---
EXAM: US RETROPERITONEAL LIMITED, RENAL CLINICAL INDICATION: UTI TECHNIQUE: Limited grayscale and color Doppler sonographic evaluation of the retroperitoneum was performed. COMPARISON: No relevant prior studies available. FINDINGS: RIGHT KIDNEY: No significant abnormality. No hydronephrosis. No shadowing calculus. No perinephric collection is demonstrated. The right kidney measures 9.4 cm in length. LEFT KIDNEY: No significant abnormality. No hydronephrosis. No shadowing calculus. No perinephric collection is demonstrated. The left kidney measures 10.7 cm in length. BLADDER: The left ureteral jet is not visualized. The right ureteral jet is visualized. OTHER FINDINGS: Splenic granulomas are present and side-port the spleen is mildly enlarged. US/Kidney and Bladder IMPRESSION: 1. Normal sonographic appearance of the bilateral kidneys. 2. Splenic granulomas are present and the spleen is mildly enlarged. Electronically Signed: Ovidio Guillermo DO at 15:56 EDT ,
== END | disposition home or self-care (01) ==
LOC: US 12:33
PROVIDERS: PCP Internal Medicine; Referring Provider Nurse Practitioner Acute Care; Visit Provider Nurse Practitioner Acute Care
DX: N39.0 Urinary tract infection, site not specified (principal); F17.210 Nicotine dependence, cigarettes, uncomplicated
CPT/HCPCS: 71271; 76770

== ENCOUNTER → 2024-10-20 | Outpatient (CLI) | payer OTHER, SELFPAY ==
[2023-01-08 11:45] VITALS: BMI 33.7
--- NOTE | 2024-10-20 09:52 | BI_ITS ---
MAMMOGRAPHY - BILATERAL SCREENING 3-D TOMOSYNTHESIS REASON FOR EXAM: Female, 74 years old. breast cancer screening PERTINENT HISTORY: No significant family history. TECHNIQUE: 2-D mammograms and 3-D Tomosynthesis of the breast (s) were performed. CAD was performed. COMPARISON: 10/17/2023 FINDINGS: The breast composition is composed of scattered fibroglandular density. Scattered benign calcifications are seen. No dense spiculated masses or suspicious microcalcifications are identified. No architectural distortion is identified. There is no skin thickening or retraction. There has been no significant change since the prior study. No change in lumpectomy changes and scarring in the retroareolar right breast. Also no change in bilateral benign rodlike calcifications. BI/SCRN MAMM (CAD)W/SHAILESH BILAT IMPRESSION: No mammographic signs of malignancy. Routine yearly mammograms recommended. ASSESSMENT CATEGORY: BIRADS Category 2: Benign. A letter regarding these results will be sent to the patient by the facility within 30 days. FOLLOW UP RECOMMENDATION: Yearly follow up mammogram recommended. (A) Approximately 10% of breast cancers are not detected by mammography. A normal mammogram should not delay biopsy of a clinically suspicious abnormality. Electronically Signed: Evan Wiley MD at 16:36 EST ,
== END | disposition home or self-care (01) ==
LOC: OPBI 09:52
PROVIDERS: PCP Internal Medicine; Referring Provider Nurse Practitioner Family; Visit Provider Nurse Practitioner Family
DX: Z12.31 Encounter for screening mammogram for malignant neoplasm of breast (principal)
CPT/HCPCS: 77063; 77067

== ENCOUNTER → 2024-12-10 | Outpatient (CLI) | payer MEDICARE, SELFPAY ==
[2023-01-08 11:45] VITALS: BMI 33.7
[2024-12-10 15:16] LABS: Hemoglobin 13.2 g/dL (12.0-15.0); Mean Corpuscular Hgb 31.3 pg (27.0-32.0); Mean Corpuscular Volume 94.8 fL (81-99); Mean Platelet Vol. 10.3 fl (6.2-12.0); Platelet Count 303 K/mm3 (150-450); RBC Distribution Width CV 12.2 % (11.6-14.6); Red Blood Count 4.22 M/mm3 (4.2-5.4); White Blood Count 8.2 K/mm3 (4.4-11.0)
[2024-12-10 15:57] LABS: AST(SGOT) 14 U/L (15-37); Alanine Aminotransfer ALT/SGPT 28 U/L (13-56); Albumin, Serum 3.8 g/dL (3.2-5.0); Alkaline Phosphatase 83 U/L (45-117); Anion Gap 4 (5-15); BUN 14 mg/dL (7-18); BUN/Creat Ratio 20.9 RATIO (10-20); Chloride 103 mmol/L (98-107); Creatinine, Serum 0.67 mg/dL (0.55-1.02); EST Glomerular Filtration Rate 91 mL/min (>60); Est Glom Filt Rate - Afr Amer 110 mL/min (>60); Globulin 3.8 g/dL (2.2-4.2); Glucose 90 mg/dL (74-106); Potassium 3.9 mmol/L (3.5-5.1); Protein, Total 7.6 g/dL (6.4-8.2); Sodium Level 140 mmol/L (136-145)
== END | disposition home or self-care (01) ==
PROVIDERS: PCP Internal Medicine; Referring Provider Urology; Visit Provider Urology
DX: N39.0 Urinary tract infection, site not specified (principal)
CPT/HCPCS: 36415; 80053; 85027

== ENCOUNTER → 2025-02-18 | Outpatient (CLI) | payer MEDICARE, SELFPAY ==
[2023-01-08 11:45] VITALS: BMI 33.7
--- NOTE | 2025-02-18 12:53 | CT_ITS ---
PROCEDURE: CHEST WITHOUT CONTRAST 02/18/2025 REASON FOR EXAM: NEW LUNG NODULE ON CXR HIGH RISK PT TECHNIQUE: Chest CT without contrast. Coronal and Sagittal reconstruction series were provided. One or more dose reduction techniques were used (e.g., Automated exposure control, adjustment of the mA and/or kV according to patient size, use of iterative reconstruction technique COMPARISON: 07/11/2024 FINDINGS: Lower neck: A nodule in the left thyroid lobe measures 1.6 cm, similar to the previous study.. Lungs/Pleura:A chronic area of consolidation with volume loss and traction bronchiectasis in the left upper lobe is again noted without significant interval change. There has been interval resolution of the tree-in-bud opacity seen on the previous exam. A few scattered punctate pulmonary nodules appear stable. For example, in the right lower lobe on image 57 of series 4 measuring 2.2 mm and in the right lower lobe on image 61 measuring 4.5 mm. A couple of calcified pulmonary nodules are present, likely due to remote granulomatous disease. Emphysematous disease is present.No pleural effusion or pneumothorax. Cardiovascular:The heart is normal in size.Moderate coronary artery calcifications are present.There are mild scattered atherosclerotic calcifications in the thoracic aorta. Pericardium:No effusion. Mediastinum:Unremarkable. Lymph nodes:No lymph node enlargement identified on this noncontrast CT. Bones:No acute osseous abnormality.Mild multilevel degenerative changes are present in the visualized spine. Soft tissues:Small metallic clips are present in the right axilla and right breast. Upper abdomen:There are numerous punctate calcifications in the visualized spleen, likely due to remote granulomatous disease. CT/Chest without Contrast IMPRESSION: 1. No acute thoracic findings. 2. Emphysematous disease with a chronic area of scarring in the left upper lobe . 3. Mild scattered punctate pulmonary nodules, likely a benign etiology. Low-do se screening follow-up is recommended in 12 months. 4. Resolution of tree-in-bud opacities seen on the previous exam. [facility]
== END | disposition home or self-care (01) ==
LOC: CT 12:53
PROVIDERS: PCP Internal Medicine; Referring Provider Nurse Practitioner Acute Care; Visit Provider Nurse Practitioner Acute Care
DX: R91.1 Solitary pulmonary nodule (principal)
CPT/HCPCS: 71250

== ENCOUNTER → 2025-07-14 | Outpatient (CLI) | payer MEDICARE, SELFPAY ==
[2023-01-08 11:45] VITALS: BMI 33.7
--- NOTE | 2025-07-14 13:49 | CT_ITS ---
PROCEDURE: LOW DOSE CT LUNG SCREENING 07/14/2025 REASON FOR EXAM: SMOKING HISTORY Former smoker. Patient has smoked 1-1/2 packs per day for 40+ years. History of breast cancer and prior lumpectomy and radiation. COPD. Asthma. TECHNIQUE: LOW DOSE CT LUNG SCREENING Coronal and Sagittal reconstruction series were provided. One or more dose reduction techniques were used (e.g., Automated exposure control, adjustment of the mA and/or kV according to patient size, use of iterative reconstruction technique). REFERENCE LINK: [facility] Lung-RADS RADIATION DOSE SUMMARY: CTDlvol: 2.39 mGy DLP: 86.38 mGycm COMPARISON: Prior study dated February 18, 2025. FINDINGS: PULMONARY NODULES: (Only nodules >3mm are reported) Nodules described below are on series 1 unless otherwise specified. Pulmonary Nodules: No suspicious pulmonary nodule is seen. Hardware:None Lymph Nodes:No suspicious nodule seen. Heart and Vasculature:Heart is nonenlarged.Atherosclerotic calcifications of the thoracic aorta. Thoracic aorta and pulmonary arteries have normal contours; noncontrast technique limits evaluation. Coronary Artery Calcifications: Present Lungs and Airways: Hyperinflation. Emphysematous changes. Stable chronic area of scarring and volume loss and bronchiectasis in the left upper lobe suggestive of prior radiation changes. Stable punctate nodules as described previously. Stable calcified granulomas. Pleura:No pleural effusion. Upper Abdomen:Unremarkable Bones:Degenerative changes of the thoracic spine. CT/Low Dose CT Lung Screening IMPRESSION: Stable examination. Coronary artery calcification (CAC) is is present Lung-RADS Category: 2 BENIGN (BASED ON IMAGING FEATURES OR INDOLENT BEHAVIOR). RECOMMEND 12-MONTH SCREENING LDCT. Other Significant Findings: Reading Location: [id number]
== END | disposition home or self-care (01) ==
LOC: CT 13:48
PROVIDERS: PCP Internal Medicine; Referring Provider Nurse Practitioner Acute Care; Visit Provider Nurse Practitioner Acute Care
DX: F17.210 Nicotine dependence, cigarettes, uncomplicated (principal)
CPT/HCPCS: 71271